=== PATIENT | female | born 2000 | race Caucasian/White ===

== ENCOUNTER 2021-01-31 16:58 | Emergency (ER) | payer BC, SELFPAY ==
[2021-01-31 17:10] VITALS: BP 144/73; PULSE 85; RESP 20; TEMP 36.8; O2SAT 99
--- NOTE | 2021-01-31 17:28 | ED_ITS ---
HPI - Extremity Problem General Chief complaint: Extremity Injury, Lower Stated complaint: right leg swollen Time Seen by Provider: 01/31/21 17:30 Source: patient and family History of Present Illness HPI Narrative: Patient presents with swelling and pain to her right calf. For the past 3 to 4 days. Patient states about 3 days ago she felt a pop in the back of her leg and has had pain and discomfort ever since then. No shortness of breath no chest pain no history of DVT. Review of Systems Review of Systems: CONSTITUTIONAL: Denies fever, chills, or sweats. EYES: Denies visual changes, redness, or discharge. ENT: Denies rhinorrhea, congestion, sore throat, or otalgia. CARDIOVASCULAR: Denies chest pain, palpitations, or edema. RESPIRATORY: Denies cough or dyspnea. GASTROINTESTINAL: Denies abdominal pain, nausea, vomiting, or diarrhea. GENITOURINARY: Denies dysuria or hematuria. SKIN: Denies rash or itching. MUSCULOSKELETAL: Denies back pain, joint pain, or myalgia. Right calf pain tenderness and swelling NEUROLOGIC: Denies headache, numbness, or weakness. PSYCHIATRIC: Denies anxiety or depression. Allergic/Immunologic: Comments: At time of signature, agree with nursing past medical, surgical, social and family history. There is no relevant family history pertinent to the presenting complaint Exam Narrative: GENERAL: Well-appearing, well-nourished, and in no acute distress. HEAD: Normocephalic, atraumatic. EYES: PERRLA and EOMI. ENT: Nares clear, no rhinorrhea or epistaxis. Mucous membranes moist. NECK: Supple. CHEST: Clear to auscultation. No respiratory distress. HEART: Regular rate and rhythm. No murmur heard. Normal peripheral pulses. ABDOMEN: Soft, nontender, nondistended, normal active bowel sounds. EXTREMITIES: Normal range of motion. No edema. Significant swelling to her right lower leg positive Homans side tenderness to calf area SKIN: Warm, dry, no rash. NEURO: No focal deficits. Alert and oriented x3. [place] Coma Scale Eye Opening: Spontaneous 4 [place] Coma Scale Motor: Obeys Commands 6 [place] Coma Scale Verbal: Oriented 5 [place] Coma Scale Total 15 Course Transfer Transfered to: [place] Transportation: Other (Private vehicle) Transfer rationale: Higher level of care Accepting physician: sean [facility] - Extremity (Nontraumatic) Differential Diagnosis Differential diagnosis: Likely cellulitis, superficial thrombophlebitis, deep venous thrombosis of upper extremity, lower extremity edema and deep vein thrombosis of lower extremity Critical Care Time Critical Care Time Critical Care Time: No Discharge Plan Discharge Clinical Impression: Pain of right calf Patient Disposition: Acute Care Hospital Condition: Stable Additional Instructions: Go directly to [facility] emergency room do not eat or drink in route to the hospital Follow-up/Referrals: PHYSICIAN,TRANSIT OPERATIONS SUPERVISOR [Primary Care Provider] -
== END 2021-01-31 17:35 | disposition short-term general hospital (02) ==
PROVIDERS: Emergency Provider Nurse Practitioner Family
DX: M79.662 Pain in left lower leg (principal)
CPT/HCPCS: 99212; G0463

== ENCOUNTER 2021-07-28 10:40 | Outpatient (CLI) | payer OTHER, SELFPAY ==
--- NOTE | ~2021-07-28 | US_ITS ---
EXAMINATION: US OB /maternal detail EXAM DATE: 07/28/2021 11:47 INDICATION: anatomy. 2nd trimester. TECHNIQUE: Pelvic obstetrical transabdominal sonogram was performed by a technologist. There are mu ltiple grayscale and Doppler images available for interpretation. There are no earlier studies of th is gestation for comparison. FINDINGS: There is a single fetus identified in vertex presentation with a heart rate of 157 beats pe r minute. The placenta is located in the fundal position. There is no sonographic evidence of retrop lacental hemorrhage identified. There is subjectively expected amount of amniotic fluid. BIOMETRIC DATA: Biparietal diameter (BPD): 4.3 cm ----------------> 19 weeks 0 days. Head circumference (HC): 16.2 cm ----------------> 19 weeks 0 days. Abdominal circumference (AC): 14.4 cm ----------> 19 weeks 5 days. Femur length (FL): 2.9 cm --------------------------> 18 weeks 5 days. These measurements are concordant. HC/AC ratio is 1.13 (The 5th -- 95th percentile range is 1.09-1.26. Estimated weight is 280 g +/- 42 g. This is the 83rd percentile when the currently reported cl inical gestation age 18 weeks 4 days, clinical estimated date of delivery (ELHAM-OPE) 12/25/2021 is used . estimated gestational age based on measurements from this exam is 19 weeks 1 day, with an est imated date of delivery (ELHAM-AUA) 12/21. ANATOMIC SURVEY: The following anatomy is identified and is sonographically normal in appearance: Cerebral ventricles Cavum septum pellucidum Cerebellum Cisterna magna Nuchal fold CTL-spine Four-chamber heart Cardiac outflow tracts Diaphragm Stomach Kidneys Bladder Three-vessel cord Cord insertion Extremities Nose/lips IMPRESSION: 1. Single fetus in vertex presentation with heart rate 157 beats per minute. 2. Estimated weight of 280 grams, 83rd percentile using the currently reported clinical gestat ion age of 18 weeks 4 days, ELHAM(OPE) 12/25. 3. Normal anatomic survey. Reviewed, dictated and finalized at location A. GAME MACHINE INSPECTOR IMPRESSION: 1. Single fetus in vertex presentation with heart rate 157 beats per minute. 2. Estimated weight of 280 grams, 83rd percentile using the currently re ported clinical gestation age of 18 weeks 4 days, ELHAM(OPE) 12/25. 3. Normal anatomic survey.
== END 2021-07-28 10:41 | disposition home or self-care (01) ==
PROVIDERS: Visit Provider Obstetrics & Gynecology Gynecology
DX: Z36.9 Encounter for antenatal screening, unspecified (principal); Z3A.18 18 weeks gestation of pregnancy
CPT/HCPCS: 76805

== ENCOUNTER 2021-09-22 10:38 | Outpatient (CLI) | payer OTHER, SELFPAY ==
--- NOTE | ~2021-09-22 | US_ITS ---
EXAMINATION: US OB follow up DATE: 09/22/2021 11:38 INDICATION: Size greater than dates during second trimester TECHNIQUE: Real-time ultrasound of the pelvis was performed. The interpreting radiologist was not pre sent for the study. COMPARISON: 07/28/2021 FINDINGS: There is a single living fetus in transverse lie. The placenta is fundal/posterior. c ardiac activity and movement are noted. heart rate is 143 beats per minute (bpm). The amn iotic fluid index is 16.1 cm which is normal (normal range: 9.7 cm to 22.3 cm). The following biometric data were obtained: Biparietal diameter (BPD): 6.8 cm; head circumference (HC): 25.1 cm; abdominal circumference (AC): 23 .9 cm; femur length (FL): 5.1 cm. These measurements are concordant. Estimated weight is 1131 g +/- 169 g, which correlates with the 86th percentile when 12/25/2021 is used as estimated date of delivery. As single measurements, these parameters are each equal to the following estimated gestational ages w ith ranges of +/- 2 standard deviations: BPD: 27 weeks 3 days ( 25 weeks 1 days - 29 weeks 4 days). HC: 27 weeks 2 days ( 25 weeks 2 days - 29 weeks 3 days). AC: 28 weeks 2 days ( 26 weeks 0 days - 30 weeks 3 days). FL: 27 weeks 3 days ( 25 weeks 3 days - 29 weeks 4 days). estimated gestational age based solely on measurements from this exam is 27 weeks 4 days +/- 2 weeks 0 days. IMPRESSION: 1. Single living fetus in transverse lie. 2. Estimated weight is 1131 g +/- 169 g, which correlates with the 86th percentile when 12/26/19 22 is used as estimated date of delivery. 3. Normal amniotic fluid index. Reviewed, dictated and finalized at location B. IMPRESSION: 1. Single living fetus in transverse lie. 2. Estimated weight is 1131 g +/- 169 g, which correlates with the 86th p ercentile when 12/25/2021 is used as estimated date of delivery. 3. Normal amniotic fluid index.
== END 2021-09-22 10:39 | disposition home or self-care (01) ==
PROVIDERS: Visit Provider Obstetrics & Gynecology Gynecology
DX: O36.63X0 Maternal care for excessive fetal growth, third trimester, not applicable or unspecified (principal); Z3A.00 Weeks of gestation of pregnancy not specified; Z3A.27 27 weeks gestation of pregnancy
CPT/HCPCS: 76816

== ENCOUNTER 2021-10-27 12:12 | Outpatient (CLI) | payer OTHER, SELFPAY ==
[2021-10-27 12:46] VITALS: BP 139/89; PULSE 90
[2021-10-27 12:47] LABS: Basophils Percent Auto 0.3 % (0.2-1.2); Eosinophils Absolute Auto 0.1 K/mm3 (0-0.3); Eosinophils Percent Auto 1.2 % (0-4.4); Hemoglobin 12.9 g/dL (12.0-15.0); Immature Granulocyte Absolute 0.07 K/mm3 (0.00-0.031); Immature Granulocyte Percent A 0.7 % (0-0.5); Lymphocytes Absolute Auto 0.82 K/mm3 (0.9-3.2); Lymphocytes Percent Auto 8.6 % (18.3-44.2); Mean Corpuscular HGB Conc 32.3 g/dl (32-36); Mean Corpuscular Hemoglobin 27.4 pg (26-34); Mean Corpuscular Volume 85.1 fl (80-100); Mean Platelet Volume 10.8 fl (7.4-10.4); Monocytes Absolute Auto 0.6 K/mm3 (0.1-0.6); Monocytes Percent Auto 6.1 % (2.6-8.5); Neutrophils Absolute Auto 7.9 K/mm3 (1.3-6.7); Neutrophils Percent Auto 83.1 % (45.5-73.1); Platelet Count Result 148 k/mm3 (150-375); Red Cell Distribution Width 13.8 % (11.5-14.5); White Blood Count 9.5 K/mm3 (4.5-10.0)
[2021-10-27 12:52] LABS: Add Urine Microscopic? YES; Appearance Urine Clear (Clear); Bacteria Urine Trace /hpf; Bilirubin Urine Negative (Negative); Blood Urine Negative (Negative); Color Urine Yellow (Yellow); Glucose Urine UA Negative (Negative); Ketones Urine Negative (Negative); Leukocyte Esterase Ur Trace LEU/UL (NEGATIVE); Nitrate Urine Negative (Negative); Protein Urine Negative (Negative); RBC Urine 0-2 /hpf (0-2); Specific Grav Ur 1.011 (1.001-1.035); Squamous Epithelial Cell Urine Many /hpf (Few); Urobilinogen Urine Negative mg/dL (<2.0)
[2021-10-27 12:54] LABS: Creatinine Urine 95.9 mg/dL; Total Protein Urine Random 13 mg/dL; Ur Ttl Prot Creatinine Ratio 0.14 mg/mg (0-0.20)
[2021-10-27 13:01] VITALS: BP 117/70; PULSE 85
[2021-10-27 13:16] VITALS: BP 121/68; PULSE 84
[2021-10-27 13:16] LABS: Alanine Aminotransferase 9 U/L (4-35); Albumin Level 3.2 g/dL (3.5-5.1); Alkaline Phosphatase 93 U/L (38-126); Anion Gap 6 mmol/L (8-16); Aspartate Amino Transferase 20 U/L (14-36); Bilirubin,Total 0.6 mg/dL (0.2-1.3); Blood Urea Nitrogen 4 mg/dL (7-17); Calcium 8.5 mg/dL (8.4-10.2); Carbon Dioxide 22 mmol/L (22-30); Chloride 106 mmol/L (98-107); Estimated Glomerular Filt Rate > 60; Glucose 84 mg/dL (65-110); Potassium 3.5 mmol/L (3.4-5.0); Sodium 134 mmol/L (137-145); Uric Acid 3.5 mg/dL (2.5-7.5)
--- NOTE | 2021-10-27 13:20 | PC.NURSE ---
1320- Spoke with Dr. Miles, labs and BP's reveiwed. Orders to discharge to home with 24 hour urine. patient to return urine tomorrow, then call office after a few hours.
[2021-10-28 13:53] VITALS: BMI 34.5
[2021-10-28 16:10] LABS: Collection Time Urine 24 HOURS
[2021-10-28 16:21] LABS: Creatinine Urine 80.8 mg/dL; Patient Weight 227 Lbs
[2021-10-28 16:25] LABS: Creatinine Clearance Urine 150.5 ml/min (75-125); Total Volume 24 Hour Urine 2000 ml
[2021-10-28 16:26] LABS: Total Volume 24 Hour Urine 2000 ml
[2021-10-29 02:17] LABS: Total Protein Urine 24 Hr 320 mg/24hr (28-141); Total Protein Urine Random 16 mg/dL
== END 2021-10-27 13:38 | disposition home or self-care (01) ==
LOC: ANHOBOP 12:17 → ANHOBPP 12:19
PROVIDERS: Visit Provider Obstetrics & Gynecology Gynecology
DX: O13.9 Gestational [pregnancy-induced] hypertension without significant proteinuria, unspecified trimester (principal); Z3A.00 Weeks of gestation of pregnancy not specified
CPT/HCPCS: 36415; 59025; 80053; 81001; 81050; 82570; 82575; 84156; 84550; 85025; 87086; 99199

== ENCOUNTER 2021-10-31 13:33 | Outpatient (CLI) | payer OTHER, SELFPAY ==
[2021-10-31 14:26] VITALS: BP 137/80; PULSE 89
[2021-10-31 14:38] LABS: Basophils Percent Auto 0.3 % (0.2-1.2); Eosinophils Absolute Auto 0.2 K/mm3 (0-0.3); Eosinophils Percent Auto 1.9 % (0-4.4); Hematocrit 39.6 % (37.0-47.0); Hemoglobin 12.9 g/dL (12.0-15.0); Immature Granulocyte Absolute 0.06 K/mm3 (0.00-0.031); Immature Granulocyte Percent A 0.6 % (0-0.5); Lymphocytes Absolute Auto 1.14 K/mm3 (0.9-3.2); Mean Corpuscular HGB Conc 32.6 g/dl (32-36); Mean Corpuscular Hemoglobin 27.6 pg (26-34); Mean Corpuscular Volume 84.8 fl (80-100); Mean Platelet Volume 10.3 fl (7.4-10.4); Monocytes Absolute Auto 0.6 K/mm3 (0.1-0.6); Monocytes Percent Auto 5.9 % (2.6-8.5); Neutrophils Absolute Auto 7.5 K/mm3 (1.3-6.7); Neutrophils Percent Auto 79.3 % (45.5-73.1); Platelet Count Result 155 k/mm3 (150-375); Red Blood Count 4.67 M/mm3 (4.2-5.4); Red Cell Distribution Width 13.8 % (11.5-14.5); White Blood Count 9.5 K/mm3 (4.5-10.0)
[2021-10-31 14:45] VITALS: BP 137/79; PULSE 88
[2021-10-31 14:50] LABS: Alanine Aminotransferase 10 U/L (4-35); Albumin Level 3.4 g/dL (3.5-5.1); Alkaline Phosphatase 97 U/L (38-126); Anion Gap 5 mmol/L (8-16); Aspartate Amino Transferase 18 U/L (14-36); Bilirubin,Total 0.4 mg/dL (0.2-1.3); Blood Urea Nitrogen 6 mg/dL (7-17); Calcium 8.9 mg/dL (8.4-10.2); Carbon Dioxide 23 mmol/L (22-30); Chloride 106 mmol/L (98-107); Estimated Glomerular Filt Rate > 60; Glucose 87 mg/dL (65-110); Potassium 3.8 mmol/L (3.4-5.0); Sodium 134 mmol/L (137-145); Uric Acid 3.6 mg/dL (2.5-7.5)
[2021-10-31 15:00] VITALS: BP 138/79; PULSE 82
[2021-10-31 15:11] VITALS: BP 137/80; PULSE 89
== END 2021-10-31 15:12 | disposition home or self-care (01) ==
LOC: ANHOBOP 13:52 → ANHLDR 13:53
PROVIDERS: Visit Provider Obstetrics & Gynecology Gynecology
DX: O13.9 Gestational [pregnancy-induced] hypertension without significant proteinuria, unspecified trimester (principal); Z3A.00 Weeks of gestation of pregnancy not specified
CPT/HCPCS: 36415; 59025; 80053; 84550; 85025; 99199

== ENCOUNTER 2021-11-09 15:48 | Outpatient (CLI) | payer OTHER, SELFPAY ==
--- NOTE | ~2021-11-09 | US_ITS ---
EXAMINATION: US OB follow up DATE: 11/09/2021 16:53 INDICATION: Preeclampsia. TECHNIQUE: Real-time transabdominal obstetric ultrasound. FINDINGS: Comparison to multiple prior studies sequentially, with oldest reviewed study dated 022. There is a single living fetus in vertex presentation. The placenta is posterior without placenta pr evia. cardiac activity and movement is noted with a heart rate of 159 beats per minute. T he amniotic fluid volume is normal. TJ measures 19.6 cm (normal range for gestational age is 8.3-24. 5 cm). The following biometric data were obtained: BPD: 88mm corresponds to gestational age 35 weeks 2 days. Head circumference: 315mm corresponds to gestational age 35 weeks 3 days. Abdominal circumference: 303mm corresponds to gestational age 34 weeks 2 days. Femur length: 70mm corresponds to gestational age 35 weeks 6 days. Estimated weight: 2540grams +/- 381grams.] Umbilical artery pulsed Doppler demonstrates peak systolic to end-diastolic velocity ratios (S/D rati os) of 2.8 (5th percentile = 2.11, 95th percentile = 3.67). IMPRESSION: 1. Single living fetus in vertex presentation with an estimated gestational age of 34 weeks 0 days b y inititial ultrasound. EDC by initial ultrasound is 12/21/2021. Appropriate interval growth. 2: Normal TJ measures 19.6 cm. 3: Normal umbilical Doppler examination. Reviewed, dictated and finalized at location A. IMPRESSION: 1. Single living fetus in vertex presentation with an estimated gestational ag e of 34 weeks 0 days by inititial ultrasound. EDC by initial ultrasound is 12/21. Appropriate interval growth. 2: Normal TJ measures 19.6 cm. 3: Normal umbilical Doppler examination.
== END 2021-11-09 15:49 | disposition home or self-care (01) ==
PROVIDERS: Visit Provider Obstetrics & Gynecology Gynecology
DX: O14.93 Unspecified pre-eclampsia, third trimester (principal); Z3A.34 34 weeks gestation of pregnancy
CPT/HCPCS: 76816

== ENCOUNTER 2021-11-10 12:48 | Observation (INO) | payer OTHER, SELFPAY ==
[2021-11-10] VITALS (7 sets, daily range): BP systolic 130–147; BP diastolic 79–91; PULSE 78–93; BMI 34.2
[2021-11-10 13:40] LABS: Basophils Percent Auto 0.2 % (0.2-1.2); Eosinophils Absolute Auto 0.1 K/mm3 (0-0.3); Eosinophils Percent Auto 0.5 % (0-4.4); Hematocrit 40.1 % (37.0-47.0); Hemoglobin 13.5 g/dL (12.0-15.0); Immature Granulocyte Absolute 0.04 K/mm3 (0.00-0.031); Immature Granulocyte Percent A 0.4 % (0-0.5); Lymphocytes Absolute Auto 1.21 K/mm3 (0.9-3.2); Lymphocytes Percent Auto 13.3 % (18.3-44.2); Mean Corpuscular HGB Conc 33.7 g/dl (32-36); Mean Corpuscular Hemoglobin 27.8 pg (26-34); Mean Corpuscular Volume 82.5 fl (80-100); Mean Platelet Volume 10.5 fl (7.4-10.4); Monocytes Absolute Auto 0.5 K/mm3 (0.1-0.6); Monocytes Percent Auto 5.8 % (2.6-8.5); Neutrophils Absolute Auto 7.3 K/mm3 (1.3-6.7); Neutrophils Percent Auto 79.8 % (45.5-73.1); Platelet Count Result 157 k/mm3 (150-375); Red Blood Count 4.86 M/mm3 (4.2-5.4); Red Cell Distribution Width 13.5 % (11.5-14.5); White Blood Count 9.1 K/mm3 (4.5-10.0)
[2021-11-10 13:47] LABS: Creatinine Urine 69.4 mg/dL; Total Protein Urine Random 17 mg/dL; Ur Ttl Prot Creatinine Ratio 0.24 mg/mg (0-0.20)
[2021-11-10 13:50] LABS: Alanine Aminotransferase 11 U/L (6-35); Albumin Level 3.5 g/dL (3.5-5.1); Alkaline Phosphatase 123 U/L (38-126); Anion Gap 8 mmol/L (8-16); Aspartate Amino Transferase 20 U/L (14-36); Bilirubin,Total 0.7 mg/dL (0.2-1.3); Blood Urea Nitrogen 4 mg/dL (7-17); Calcium 8.9 mg/dL (8.4-10.2); Carbon Dioxide 20 mmol/L (22-30); Chloride 105 mmol/L (98-107); Estimated CRCL calculation 156 ml/min; Estimated Glomerular Filt Rate > 60; Glucose 81 mg/dL (65-110); Potassium 3.6 mmol/L (3.4-5.0); Sodium 133 mmol/L (137-145); Uric Acid 4.2 mg/dL (2.5-7.5)
[2021-11-10 13:51] LABS: Appearance Urine Clear (Clear); Bilirubin Urine Negative (Negative); Blood Urine Negative (Negative); Color Urine Yellow (Yellow); Glucose Urine UA Negative (Negative); Ketones Urine 2+ mg/dL (Negative); Leukocyte Esterase Ur 1+ LEU/UL (NEGATIVE); Nitrate Urine Negative (Negative); Protein Urine Negative (Negative); Urobilinogen Urine 0.2 mg/dL (<2.0)
[2021-11-10] MEDS: BETAMETHASONE SOD PHOS/ACETATE 30 MG/5 ML VIAL 12 MG IM (13:54)
[2021-11-10] MEDS: ONDANSETRON INJ 4 MG/2 ML VIAL IV PUSH (13:57)
[2021-11-10 13:58] LABS: Bacteria Urine Trace /hpf; Squamous Epithelial Cell Urine Few /hpf (Few)
[2021-11-10 14:06] LABS: Add Urine Microscopic? YES
--- NOTE | 2021-11-10 14:27 | OBADM ---
This patient, Caron Horton, admitted to the OB room OB Post 116 for observation. Patient/family oriented to hospital policies and general routines including ID bracelet, bed and alarms, visiting hours, pain management, procedures, bathroom and other care routines, personal items, smoking policy, room service/diet, and visiting hours. Patient/Family are encouraged to report perceived risks to care and to ask questions if they do not understand what they are told or what they should do. Phone call received from Micheline Pérez CNM with orders for Labwork, EFM, v.s., and medication. Orders to notify LARISAM after labs and meds given.
--- NOTE | 2021-11-10 15:37 | PC.NURSE ---
1458--Phone call received from Micheline Pérez CNM, orders to DC home with instructions on when to return to hospital and f/u in office on Sunday11/14/21.
--- NOTE | 2021-11-15 13:13 | PM.OBTRLD ---
OB - Triage/Final Diagnosis Visit Information Reason for evaluation: other (Preeclampsia) Comments/Additional reasons for admission: I have assessed the risk for this patient, Caron Horton, and determined that she would benefit from observation care. Evaluation Laboratory results: Laboratory Tests 11/10/21 11/10/21 11/10/21 13:20 13:20 13:29 WBC 9.1 RBC 4.86 Hgb 13.5 Hct 40.1 MCV 82.5 MCH 27.8 MCHC 33.7 RDW 13.5 Plt Count 157 MPV 10.5 H Immature Gran % (Auto) 0.4 Neut % (Auto) 79.8 H Lymph % (Auto) 13.3 L [place] % (Auto) 5.8 Eos % (Auto) 0.5 Baso % (Auto) 0.2 Lymph # (Auto) 1.21 [place] # (Auto) 0.5 Eos # (Auto) 0.1 Baso # (Auto) 0.0 Abs Immat Gran (auto) 0.04 H Absolute Neuts (auto) 7.3 H Absolute Nucleated RBC 0.0 Nucleated RBC % 0.0 Sodium Potassium Chloride Carbon Dioxide Anion Gap BUN Creatinine Estim Creat Clear Calc Estimated GFR Glucose Uric Acid Calcium Total Bilirubin AST ALT Alkaline Phosphatase Total Protein Albumin Urine Color Yellow Urine Appearance Clear Urine pH 7.0 Ur Specific [place] 1.010 Urine Protein Negative Urine Glucose (UA) Negative Urine Ketones 2+ H Ur Blood (Man) Negative Urine Nitrate Negative Urine Bilirubin Negative Urine Urobilinogen 0.2 Ur Leukocyte Esterase 1+ H Urine WBC 4-6 H Ur Squamous Epith Cells Few Urine Bacteria Trace U Random Total Protein 17 Urine Creatinine 69.4 Protein/Creat Ratio 2 0.24 H 11/10/21 13:29 WBC RBC Hgb Hct MCV MCH MCHC RDW Plt Count MPV Immature Gran % (Auto) Neut % (Auto) Lymph % (Auto) [place] % (Auto) Eos % (Auto) Baso % (Auto) Lymph # (Auto) [place] # (Auto) Eos # (Auto) Baso # (Auto) Abs Immat Gran (auto) Absolute Neuts (auto) Absolute Nucleated RBC Nucleated RBC % Sodium 133 L Potassium 3.6 Chloride 105 Carbon Dioxide 20 L Anion Gap 8 BUN 4 L Creatinine 0.60 L Estim Creat Clear Calc 156 Estimated GFR > 60 Glucose 81 Uric Acid 4.2 Calcium 8.9 Total Bilirubin 0.7 AST 20 ALT 11 Alkaline Phosphatase 123 Total Protein 7.0 Albumin 3.5 Urine Color Urine Appearance Urine pH Ur Specific [place] Urine Protein Urine Glucose (UA) Urine Ketones Ur Blood (Man) Urine Nitrate Urine Bilirubin Urine Urobilinogen Ur Leukocyte Esterase Urine WBC Ur Squamous Epith Cells Urine Bacteria U Random Total Protein Urine Creatinine Protein/Creat Ratio 2
== END 2021-11-10 15:24 | disposition home or self-care (01) ==
PROVIDERS: Admitting Provider Obstetrics & Gynecology; Visit Provider Advanced Practice Midwife
DX: O14.93 Unspecified pre-eclampsia, third trimester (principal); Z3A.33 33 weeks gestation of pregnancy
CPT/HCPCS: 36415; 80053; 81001; 82570; 84156; 84550; 85025; 87081; 87086; 96372; 96374; G0378; G0379; J0702; J2405

== ENCOUNTER 2021-11-11 13:36 | Outpatient (CLI) | payer OTHER, SELFPAY ==
[2021-11-11 13:36] VITALS: BMI 34.2
[2021-11-11] MEDS: BETAMETHASONE SOD PHOS/ACETATE 30 MG/5 ML VIAL 12 MG IM (14:10)
[2021-11-11 14:14] VITALS: BP 132/81; PULSE 88
[2021-11-11 15:48] LABS: Collection Time Urine 24 HOURS
[2021-11-11 15:57] LABS: Total Volume 24 Hour Urine 2300 ml
[2021-11-11 16:12] LABS: Total Protein Urine 24 Hr 414 mg/24hr (28-141); Total Protein Urine Random 18 mg/dL
[2021-11-11 16:13] LABS: Creatinine Clearance Urine 163.5 ml/min (75-125); Creatinine Urine 75.9 mg/dL; Patient Weight 224 Lbs
== END 2021-11-11 13:37 | disposition home or self-care (01) ==
LOC: ANHOBOP 13:44
PROVIDERS: Visit Provider Obstetrics & Gynecology Gynecology
DX: O15.03 Eclampsia complicating pregnancy, third trimester (principal); Z3A.34 34 weeks gestation of pregnancy
CPT/HCPCS: 59025; 81050; 82575; 84156; 96372; J0702

== ENCOUNTER 2021-11-12 15:18 | Outpatient (CLI) | payer OTHER, SELFPAY ==
[2021-11-12 15:30] VITALS: BP 138/83; PULSE 80
[2021-11-12 15:45] VITALS: BP 130/79; PULSE 85
[2021-11-12 16:00] VITALS: BP 127/76; PULSE 79
[2021-11-12 16:20] VITALS: TEMP 36.3
--- NOTE | 2021-11-12 16:30 | PC.NURSE ---
Called Dr. Hassan notifying of redness on arms and face, nausea, and feeling hot after second steroid shot yesterday. Vital signs stable, reactive NST, no contractions, and occasional irritability. Pt states head is foggy and sees occasional light flashes that she noticed for weeks. Orders received to D/C home with Benadryl, Tylenol, fluids, and rest.
== END 2021-11-12 16:35 | disposition home or self-care (01) ==
LOC: ANHOBOP 15:22 → ANHOBPP 15:23
PROVIDERS: Visit Provider Obstetrics & Gynecology Gynecology
DX: O13.9 Gestational [pregnancy-induced] hypertension without significant proteinuria, unspecified trimester (principal); Z3A.00 Weeks of gestation of pregnancy not specified
CPT/HCPCS: 59025; 99199

== ENCOUNTER 2021-11-14 13:46 | Outpatient (RCR) | payer OTHER, SELFPAY ==
--- NOTE | ~2021-11-14 | US_ITS ---
EXAMINATION: US OB BPP wo non-stress DATE: 11/14/2021 15:31 CDT INDICATION: variable movement TECHNIQUE: Real-time transabdominal obstetric ultrasound. FINDINGS: Comparison ultrasound dated 11/09/2021 There is a single living fetus in vertex presentation. The placenta is posterior without placenta pr evia. cardiac activity and movement is noted with a heart rate of 154 beats per minute. Biophysical profile: breathin of 2 movement: 2 of 2 tone: 2 of 2 Amniotic flud pocket: 2 of 2 Total score: 8 of 8 IMPRESSION: 1. Single living intrauterine in vertex presentation. 2: Total biophysical profile score of 8/8. Reviewed, dictated and finalized at location A.
[2021-11-14 16:00] VITALS: BP 140/80; PULSE 86
== END 2021-12-09 10:19 | disposition home or self-care (01) ==
LOC: ANHOBOP 13:46
PROVIDERS: Visit Provider Obstetrics & Gynecology Gynecology
DX: O14.93 Unspecified pre-eclampsia, third trimester (principal); Z3A.34 34 weeks gestation of pregnancy
CPT/HCPCS: 59025; 76819

== ENCOUNTER 2021-11-16 23:12 | Observation (INO) | payer OTHER, SELFPAY ==
[2021-11-16 22:24] VITALS: BP 131/83; PULSE 87
[2021-11-16 22:30] VITALS: BP 134/77; PULSE 85
[2021-11-16 22:38] LABS: Basophils Percent Auto 0.4 % (0.2-1.2); Eosinophils Absolute Auto 0.1 K/mm3 (0-0.3); Eosinophils Percent Auto 0.9 % (0-4.4); Hematocrit 39.6 % (37.0-47.0); Immature Granulocyte Absolute 0.14 K/mm3 (0.00-0.031); Immature Granulocyte Percent A 1.4 % (0-0.5); Lymphocytes Percent Auto 17.7 % (18.3-44.2); Mean Corpuscular HGB Conc 32.8 g/dl (32-36); Mean Corpuscular Hemoglobin 27.7 pg (26-34); Mean Corpuscular Volume 84.3 fl (80-100); Mean Platelet Volume 10.7 fl (7.4-10.4); Monocytes Absolute Auto 0.7 K/mm3 (0.1-0.6); Monocytes Percent Auto 7.1 % (2.6-8.5); Neutrophils Absolute Auto 7.4 K/mm3 (1.3-6.7); Neutrophils Percent Auto 72.5 % (45.5-73.1); Platelet Count Result 169 k/mm3 (150-375); Red Cell Distribution Width 13.8 % (11.5-14.5); White Blood Count 10.2 K/mm3 (4.5-10.0)
[2021-11-16 22:39] VITALS: RESP 17; TEMP 36.6
[2021-11-16 22:41] LABS: Appearance Urine Clear (Clear); Bilirubin Urine Negative (Negative); Color Urine Yellow (Yellow); Glucose Urine UA Negative (Negative); Ketones Urine Negative (Negative); Leukocyte Esterase Ur 2+ LEU/UL (NEGATIVE); Nitrate Urine Negative (Negative); Protein Urine Negative (Negative); Specific Grav Ur 1.015 (1.001-1.035); Urobilinogen Urine 0.2 mg/dL (<2.0)
[2021-11-16 22:43] LABS: Add Urine Microscopic? YES; Blood Urine Trace (Negative)
[2021-11-16 22:45] VITALS: BP 122/77; PULSE 86
[2021-11-16 22:49] LABS: Alanine Aminotransferase 12 U/L (6-35); Albumin Level 3.3 g/dL (3.5-5.1); Alkaline Phosphatase 103 U/L (38-126); Anion Gap 6 mmol/L (8-16); Aspartate Amino Transferase 16 U/L (14-36); Bilirubin,Total 0.4 mg/dL (0.2-1.3); Blood Urea Nitrogen 8 mg/dL (7-17); Calcium 8.9 mg/dL (8.4-10.2); Carbon Dioxide 20 mmol/L (22-30); Chloride 107 mmol/L (98-107); Estimated Glomerular Filt Rate > 60; Glucose 97 mg/dL (65-110); Potassium 3.7 mmol/L (3.4-5.0); Sodium 133 mmol/L (137-145); Total Protein Urine Random 14 mg/dL; Uric Acid 3.9 mg/dL (2.5-7.5)
[2021-11-16 23:00] VITALS: BP 130/71; PULSE 80
[2021-11-16 23:24] LABS: Bacteria Urine Trace /hpf; RBC Urine 0-2 /hpf (0-2); Squamous Epithelial Cell Urine Many /hpf (Few)
[2021-11-16 23:33] VITALS: BMI 34.2
--- NOTE | 2021-11-16 23:36 | OBADM ---
This patient, Caron Horton, admitted to the OB room OB Post 117 for observation. Patient/family oriented to hospital policies and general routines including ID bracelet, bed and alarms, visiting hours, pain management, procedures, bathroom and other care routines, personal items, smoking policy, room service/diet, and visiting hours. Patient/Family are encouraged to report perceived risks to care and to ask questions if they do not understand what they are told or what they should do.
--- NOTE | 2021-11-16 23:38 | PC.NURSE ---
This RN contacted Nicole Pérez, Tube Handler. Beto updated on PT's lab results, head to toe assessment, vital signs, and FHR. No new orders received at this time.
--- NOTE | 2021-11-16 23:40 | PC.NURSE ---
Addendum entered by Ana Lilia Avila RN 11/16/21 23:45: Ordered to discontinue EFM per Nicole Pérez. PT denies feeling contractions. Reactive tracing. Instructed PT to call out for stronger contractions, leaking fluid, vaginal bleeding. PT verbalizes understanding. Original Note: This RN contacted by Nicole Pérez, Head Of Design at 2309 on 11/16/2021. Ordered to admit PT under observation. Verbal read back of orders performed between this RN and Beto.
[2021-11-17 03:12] VITALS: TEMP 36.3
[2021-11-17 03:13] VITALS: BP 121/66; PULSE 78
[2021-11-17 05:53] VITALS: TEMP 36.4
[2021-11-17 05:54] VITALS: BP 144/79; PULSE 88
--- NOTE | 2021-11-17 07:21 | PM.OBTRLD ---
OB - Triage/Final Diagnosis Visit Information Comments/Additional reasons for admission: I have assessed the risk for this patient, Caron Horton, and determined that she would benefit from observation care. Evaluation Laboratory results: Laboratory Tests 11/16/21 11/16/21 11/16/21 22:15 22:15 22:15 WBC 10.2 H RBC 4.70 Hgb 13.0 Hct 39.6 MCV 84.3 MCH 27.7 MCHC 32.8 RDW 13.8 Plt Count 169 MPV 10.7 H Immature Gran % (Auto) 1.4 H Neut % (Auto) 72.5 Lymph % (Auto) 17.7 L [place] % (Auto) 7.1 Eos % (Auto) 0.9 Baso % (Auto) 0.4 Lymph # (Auto) 1.80 [place] # (Auto) 0.7 H Eos # (Auto) 0.1 Baso # (Auto) 0.0 Abs Immat Gran (auto) 0.14 H Absolute Neuts (auto) 7.4 H Absolute Nucleated RBC 0.0 Nucleated RBC % 0.0 Sodium Potassium Chloride Carbon Dioxide Anion Gap BUN Creatinine Estim Creat Clear Calc Estimated GFR Glucose Uric Acid Calcium Total Bilirubin AST ALT Alkaline Phosphatase Total Protein Albumin Urine Color Yellow Urine Appearance Clear Urine pH 7.0 Ur Specific [place] 1.015 Urine Protein Negative Urine Glucose (UA) Negative Urine Ketones Negative Ur Blood (Man) Trace Urine Nitrate Negative Urine Bilirubin Negative Urine Urobilinogen 0.2 Ur Leukocyte Esterase 2+ H Urine RBC 0-2 Urine WBC 4-6 H Ur Squamous Epith Cells Many H Urine Bacteria Trace U Random Total Protein 14 Urine Creatinine 69.0 Protein/Creat Ratio 2 0.20 11/16/21 22:15 WBC RBC Hgb Hct MCV MCH MCHC RDW Plt Count MPV Immature Gran % (Auto) Neut % (Auto) Lymph % (Auto) [place] % (Auto) Eos % (Auto) Baso % (Auto) Lymph # (Auto) [place] # (Auto) Eos # (Auto) Baso # (Auto) Abs Immat Gran (auto) Absolute Neuts (auto) Absolute Nucleated RBC Nucleated RBC % Sodium 133 L Potassium 3.7 Chloride 107 Carbon Dioxide 20 L Anion Gap 6 L BUN 8 Creatinine 0.70 Estim Creat Clear Calc Not Reportable Estimated GFR > 60 Glucose 97 Uric Acid 3.9 Calcium 8.9 Total Bilirubin 0.4 AST 16 ALT 12 Alkaline Phosphatase 103 Total Protein 6.0 L Albumin 3.3 L Urine Color Urine Appearance Urine pH Ur Specific [place] Urine Protein Urine Glucose (UA) Urine Ketones Ur Blood (Man) Urine Nitrate Urine Bilirubin Urine Urobilinogen Ur Leukocyte Esterase Urine RBC Urine WBC Ur Squamous Epith Cells Urine Bacteria U Random Total Protein Urine Creatinine Protein/Creat Ratio 2 Vital signs: Vital Signs - 24 hr 11/16/21 22:24 11/16/21 22:30 11/16/21 22:39 Temperature 97.8 F Pulse Rate 87 85 Respiratory Rate 17 Blood Pressure 131/83 134/77 11/16/21 22:45 11/16/21 23:00 11/17/21 03:12 Temperature 97.4 F L Pulse Rate 86 80 Respiratory Rate Blood Pressure 122/77 130/71 11/17/21 03:13 11/17/21 05:53 11/17/21 05:54 Temperature 97.6 F Pulse Rate 78 88 Respiratory Rate Blood Pressure 121/66 144/79 H Final Diagnosis (1) Preeclampsia: Code(s): O14.90 - Unspecified pre-eclampsia, unspecified trimester Status: Acute Plan: Patient with symptoms last pm but feeling well this am. Labs and vs stable. Discussed hospital management vs continued outpatient management and patient prefers outpatient. Will DC home. Continue daily BP's, kick counts, symptoms review. Continue NST's and visits. (2) with 34 to 36 completed weeks gestation: Status: Acute
[2021-11-17 08:07] VITALS: BP 144/89; PULSE 77
--- NOTE | 2021-11-17 08:09 | PC.NURSE ---
0705--Dr. Miles reviewed labs and BP's. DC orders given.
== END 2021-11-17 08:05 | disposition home or self-care (01) ==
LOC: ANHOBOP 23:12 → ANHOBPP 23:12
PROVIDERS: Advanced Practice Midwife; Admitting Provider Obstetrics & Gynecology Gynecology; Visit Provider Obstetrics & Gynecology Gynecology
DX: O14.93 Unspecified pre-eclampsia, third trimester (principal); Z3A.34 34 weeks gestation of pregnancy
CPT/HCPCS: 36415; 59025; 80053; 81001; 82570; 84156; 84550; 85025; 87086; G0378; G0379

== ENCOUNTER 2021-11-23 20:08 | Inpatient (IN) | payer OTHER, SELFPAY ==
[2021-11-23] VITALS (22 sets, daily range): BP systolic 137–168; BP diastolic 76–105; PULSE 83–112; TEMP 36.7; BMI 34.2
[2021-11-23 16:55] LABS: Basophils Absolute Auto 0.1 K/mm3 (0.0-0.1); Basophils Percent Auto 0.5 % (0.2-1.2); Eosinophils Absolute Auto 0.1 K/mm3 (0-0.3); Eosinophils Percent Auto 0.7 % (0-4.4); Hematocrit 40.5 % (37.0-47.0); Hemoglobin 13.5 g/dL (12.0-15.0); Immature Granulocyte Absolute 0.11 K/mm3 (0.00-0.031); Lymphocytes Absolute Auto 1.45 K/mm3 (0.9-3.2); Lymphocytes Percent Auto 13.4 % (18.3-44.2); Mean Corpuscular HGB Conc 33.3 g/dl (32-36); Mean Corpuscular Hemoglobin 27.8 pg (26-34); Mean Corpuscular Volume 83.3 fl (80-100); Mean Platelet Volume 10.8 fl (7.4-10.4); Monocytes Absolute Auto 0.7 K/mm3 (0.1-0.6); Monocytes Percent Auto 6.5 % (2.6-8.5); Neutrophils Absolute Auto 8.4 K/mm3 (1.3-6.7); Neutrophils Percent Auto 77.9 % (45.5-73.1); Platelet Count Result 150 k/mm3 (150-375); Red Blood Count 4.86 M/mm3 (4.2-5.4); Red Cell Distribution Width 13.6 % (11.5-14.5); White Blood Count 10.8 K/mm3 (4.5-10.0)
[2021-11-23 17:01] LABS: Appearance Urine Slightly Cloudy (Clear); Bilirubin Urine Negative (Negative); Blood Urine Negative (Negative); Color Urine Yellow (Yellow); Glucose Urine UA Negative (Negative); Ketones Urine Negative (Negative); Leukocyte Esterase Ur 2+ LEU/UL (NEGATIVE); Nitrate Urine Negative (Negative); Protein Urine Negative (Negative); Urobilinogen Urine 0.2 mg/dL (<2.0)
[2021-11-23 17:06] LABS: Bacteria Urine Trace /hpf; Mucus Urine Rare /lpf; RBC Urine 0-2 /hpf (0-2); Squamous Epithelial Cell Urine Many /hpf (Few)
[2021-11-23 17:07] LABS: Add Urine Microscopic? YES
[2021-11-23 17:10] LABS: Alanine Aminotransferase 11 U/L (6-35); Albumin Level 3.5 g/dL (3.5-5.1); Alkaline Phosphatase 132 U/L (38-126); Anion Gap 9 mmol/L (8-16); Aspartate Amino Transferase 18 U/L (14-36); Bilirubin,Total 0.5 mg/dL (0.2-1.3); Blood Urea Nitrogen 9 mg/dL (7-17); Calcium 9.1 mg/dL (8.4-10.2); Carbon Dioxide 19 mmol/L (22-30); Chloride 108 mmol/L (98-107); Estimated Glomerular Filt Rate > 60; Glucose 78 mg/dL (65-110); Potassium 4.2 mmol/L (3.4-5.0); Sodium 136 mmol/L (137-145); Uric Acid 4.6 mg/dL (2.5-7.5)
[2021-11-23 17:11] LABS: Creatinine Urine 64.9 mg/dL; Total Protein Urine Random 10 mg/dL; Ur Ttl Prot Creatinine Ratio 0.15 mg/mg (0-0.20)
--- NOTE | 2021-11-23 19:48 | WPDOBADMIT ---
Obstetrics - Admit Note Admission Note: record reviewed. No pertinent additions to the history and/or any subsequent changes in the physical findings that are not consistent with the expected course of the were found. Additions to the history and/or subsequent changes in the physical findings follow. Patient at 35 4/7 wks with known preeclampsia here complaining of headache, nausea, and vomiting. vss afebrile abdoment soft, nt FHTs reactive cervix cl/th labs stable a/p 1. IUP 35 4/7 2 preeclampsia-symptomatic. Plan MIL with cervadil then Pitocin. Plan magnesium.
--- NOTE | 2021-11-23 20:16 | LDADM ---
This patient, Caron Horton, was admitted to Labor/Delivery/Recovery 106 on 11/23/21 at 20:08. Plans for labor, pain management and were discussed with patient. Patient/family oriented to hospital policies and general routines including ID bracelet, bed and alarms, visiting hours, pain management, procedures, bathroom and other care routines, personal items, smoking policy, room service/diet and guest tray routines, security routines, and visiting hours. Patient/Family are encouraged to report perceived risks to care and to ask questions if they do not understand what they are told or what they should do. See OBIX for further documentation.
[2021-11-23 20:32] LABS: Basophils Percent Auto 0.4 % (0.2-1.2); Eosinophils Absolute Auto 0.1 K/mm3 (0-0.3); Eosinophils Percent Auto 0.7 % (0-4.4); Hemoglobin 13.5 g/dL (12.0-15.0); Immature Granulocyte Absolute 0.09 K/mm3 (0.00-0.031); Immature Granulocyte Percent A 0.8 % (0-0.5); Lymphocytes Absolute Auto 1.58 K/mm3 (0.9-3.2); Lymphocytes Percent Auto 14.7 % (18.3-44.2); Mean Corpuscular HGB Conc 32.9 g/dl (32-36); Mean Corpuscular Hemoglobin 27.7 pg (26-34); Mean Corpuscular Volume 84.2 fl (80-100); Mean Platelet Volume 10.6 fl (7.4-10.4); Monocytes Absolute Auto 0.6 K/mm3 (0.1-0.6); Monocytes Percent Auto 5.6 % (2.6-8.5); Neutrophils Absolute Auto 8.3 K/mm3 (1.3-6.7); Neutrophils Percent Auto 77.8 % (45.5-73.1); Platelet Count Result 148 k/mm3 (150-375); Red Blood Count 4.87 M/mm3 (4.2-5.4); Red Cell Distribution Width 13.8 % (11.5-14.5); White Blood Count 10.7 K/mm3 (4.5-10.0)
[2021-11-23] MEDS: ONDANSETRON INJ 4 MG/2 ML VIAL IV PUSH (20:37)
[2021-11-23] MEDS: PROCHLORPERAZINE MALEATE 5 MG TABLET 10 MG PO (20:39)
[2021-11-23] MEDS: DINOPROSTONE 10 MG VAG INSERT VAGINAL (20:56)
--- NOTE | 2021-11-23 21:05 | PC.NURSE ---
Orders received to initiate induction process per Dr. Miles at 1999 on 11/23/2021.
--- NOTE | 2021-11-23 21:27 | WPDANESEPP ---
Anes - Eval Pre Procedure Procedure: labor epidural Date/Time: 11/23/21 21:27 Surgeon: phil Pre Op Diagnosis: PIH Work Up Patient Data Age: 21 Gender: F Height: 1.73 m Weight: 102 kg Last Vital Signs Pulse 89 11/23/21 21:16 BP 140/90 11/23/21 21:16 O2 Del Method Room Air 11/23/21 21:06 Allergies Allergy/AdvReac Type Severity Reaction Status Date / Time doxycycline Allergy Hives Verified 11/10/21 13:40 Penicillins Allergy Hives Verified 11/10/21 13:40 Home Medications Medication Instructions Recorded Confirmed Type ergocalciferol (vitamin D2) 50,000 50,000 unit PO MONTHLY 11/10/21 11/23/21 History unit tablet fluoxetine 20 mg capsule 20 mg PO DAILY 11/10/21 11/23/21 History vit no.133-ferrous tablet PO 11/10/21 History fumarate 28 mg-folic acid 800 mcg tablet () Laboratory Tests 11/23/21 11/23/21 11/23/21 16:39 16:39 16:39 WBC 10.8 K/mm3 H K/mm3 (4.5-10.0) RBC 4.86 M/mm3 M/mm3 (4.2-5.4) Hgb 13.5 g/dL g/dL (12.0-15.0) Hct 40.5 % % (37.0-47.0) MCV 83.3 fl fl (80-100) MCH 27.8 pg pg (26-34) MCHC 33.3 g/dl g/dl (32-36) RDW 13.6 % % (11.5-14.5) Plt Count 150 k/mm3 k/mm3 (150-375) MPV 10.8 fl H fl (7.4-10.4) Immature Gran % (Auto) 1.0 % H % (0-0.5) Neut % (Auto) 77.9 % H % (45.5-73.1) Lymph % (Auto) 13.4 % L % (18.3-44.2) [place] % (Auto) 6.5 % % (2.6-8.5) Eos % (Auto) 0.7 % % (0-4.4) Baso % (Auto) 0.5 % % (0.2-1.2) Lymph # (Auto) 1.45 K/mm3 K/mm3 (0.9-3.2) [place] # (Auto) 0.7 K/mm3 H K/mm3 (0.1-0.6) Eos # (Auto) 0.1 K/mm3 K/mm3 (0-0.3) Baso # (Auto) 0.1 K/mm3 K/mm3 (0.0-0.1) Abs Immat Gran (auto) 0.11 K/mm3 H K/mm3 (0.00-0.031) Absolute Neuts (auto) 8.4 K/mm3 H K/mm3 (1.3-6.7) Absolute Nucleated RBC 0.0 K/mm3 K/mm3 (0.0-0.012) Nucleated RBC % 0.0 % % (0.0-0.2) Sodium Potassium Chloride Carbon Dioxide Anion Gap BUN Creatinine Estim Creat Clear Calc Estimated GFR Glucose Uric Acid Calcium Total Bilirubin AST ALT Alkaline Phosphatase Total Protein Albumin Urine Color Yellow (Yellow) Urine Appearance Slightly cloudy (Clear) Urine pH 7.0 (5.0-9.0) Ur Specific [place] 1.020 (1.001-1.035) Urine Protein Negative mg/dL mg/dL (Negative) Urine Glucose (UA) Negative mg/dL mg/dL (Negative) Urine Ketones Negative mg/dL mg/dL (Negative) Ur Blood (Man) Negative (Negative) Urine Nitrate Negative (Negative) Urine Bilirubin Negative (Negative) Urine Urobilinogen 0.2 mg/dL mg/dL (<2.0) Ur Leukocyte Esterase 2+ ALFREDA/UL H ALFREDA/UL (NEGATIVE) Urine RBC 0-2 /hpf /hpf (0-2) Urine WBC 4-6 /hpf H /hpf (0-3) Ur Squamous Epith Cells Many /hpf H /hpf (Few) Urine Bacteria Trace /hpf /hpf Urine Mucus Rare /lpf /lpf U Random Total Protein 10 mg/dL mg/dL Urine Creatinine 64.9 mg/dL mg/dL Protein/Creat Ratio 2 0.15 mg/mg mg/mg (0-0.20) 11/23/21 11/23/21 16:39 19:47 WBC 10.7 K/mm3 H K/mm3 (4.5-10.0) RBC 4.87 M/mm3 M/mm3 (4.2-5.4) Hgb 13.5 g/dL g/dL (12.0-15.0) Hct 41.0 % % (37.0-47.0) MCV 84.2 fl fl (80-100) MCH 27.7 pg pg (26-34) MCHC 32.9 g/dl g/dl (32-36) RDW 13.8 % % (11.5-14.5) Plt Count 148 k/mm3 L k/mm3 (150-375) MPV 10.6 fl H fl (7.4-10.4) Immature Gran % (
--- NOTE | 2021-11-23 21:31 | PC.NURSE ---
Unable to document FHR and CXT in OBIX due to PT being transferred in the system. Documentation of pain, FHR, and CXT from & found here: : FHR: 135, Accels present, moderate variability, no decelerations noted, Cat. 1 CXT: every 2-6 min, duration: 40-90 seconds soft to palpation Pain: Pt rating CXT pain 2 on a 0-10 pain scale. Pt rating MASON pain 4 on a 0-10 pain scale. FHR: 145, Accels present, moderate variability, no decelerations noted, Cat. 1 CXT: every 2-7 min, duration: 40-60 seconds soft to palpation Pain: Pt rating CXT pain 2 on a 0-10 pain scale. Pt rating MASON pain 4 on a 0-10 pain scale.
[2021-11-23] MEDS: ACETAMINOPHEN/BUTALBITAL/CAFFEINE 325-50-40 MG TABLET (FIORICET) 1 TAB PO (23:16)
[2021-11-23] MEDS: LACTATED RINGERS 1,000 ML 75 ML IV CONT (23:18)
[2021-11-23] MEDS: MAGNESIUM SULF 4 GM/WATER100ML 4 GM/100 ML BAG IVPB (23:20)
[2021-11-23] MEDS: MAGNESIUM SULF 20GM/WATER500ML 500 ML 50 MG IV CONT (23:56)
[2021-11-24] VITALS (129 sets, daily range): BP systolic 115–167; BP diastolic 58–141; PULSE 81–139; RESP 20; TEMP 36.1–36.6; O2SAT 92–100
[2021-11-24] MEDS: ACETAMINOPHEN/BUTALBITAL/CAFFEINE 325-50-40 MG TABLET (FIORICET) 1 TAB PO ×5 (04:34→20:27)
[2021-11-24] MEDS: OXYTOCIN 30 UNITS/NS 500 ML 30 UNITS/500 ML BAG 6 UNITS IV CONT (08:37)
[2021-11-24] MEDS: fentaNYL CITRATE INJ (*CRX) 100 MCG/2 ML VIAL 50 MCG IV PUSH ×2 (08:47→11:48)
[2021-11-24] MEDS: ONDANSETRON INJ 4 MG/2 ML VIAL IV PUSH (08:59)
[2021-11-24] MEDS: MAGNESIUM SULF 20GM/WATER500ML 500 ML 50 MG IV CONT ×2 (10:02→19:56)
[2021-11-24 11:03] LABS: Rapid Plasma Reagin Non-Reactive (NonReactive)
[2021-11-24] MEDS: LACTATED RINGERS 1,000 ML 75 ML IV CONT (11:36)
[2021-11-24] MEDS: fentaNYL CITRATE INJ (*CRX) 100 MCG/2 ML VIAL IV PUSH (13:03)
--- NOTE | 2021-11-24 14:39 | PM.OBPNLAB ---
Pain Control Date/time seen: 11/24/21 14:39 Comments: This am headaches better with fioricet. cervix /-2 ROM with clear fluid VSS afebrile continue MIL
--- NOTE | 2021-11-24 16:08 | PM.OBPRVD ---
OB - Delivery Note Procedure Delivery date: 11/24/21 Procedure: Events: Preeclampsia w severe features Induction method: AROM, Per Pitocin Protocol and Per Cervidil Protocol Delivery monitor: External FHT and External Uterine Route of delivery: Laceration Description: Perineal - 2nd Degree Delivery repair: vicryl (3-0) Specimen: Yes Quantitative Blood Loss (ml): 600 Anesthesia type: Epidural Disposition: Floor Baby Date of : 11/24/21 Weeks of gestation at delivery: 35 Infant gender: Male Weight (pounds): 6 Weight (ounces): 12 presentation: vertex position: Other (right hand at neck) Placenta delivery description: Spontaneous Cord Vessel Description: 3 Vessels and Delayed Cord Clamping score one minute: 7 score five minutes: 8
--- NOTE | 2021-11-24 16:10 | PM.OBDSVD ---
DS: Admitting Diagnosis Discharge Date 11/27/21 Admitting Diagnosis IUP 35 4/7 wks for MIL due to preeclampsia DS: Discharge Diagnosis Discharge Diagnosis (1) with 34 to 36 completed weeks gestation: Status: Acute (2) Preeclampsia: Code(s): O14.90 - Unspecified pre-eclampsia, unspecified trimester Status: Acute (3) (normal spontaneous vaginal delivery): Code(s): O80 - Encounter for full-term uncomplicated delivery Status: Acute OB - DS: Summary OB Procedures : NST, PIH Mgmt and Ultrasound OB Procedures Intrapartum: Spontaneous Vag Delivery OB Procedures: : None Peripartum Data Infant Delivery Method: Natural Vaginal Laceration Description: Perineal - 2nd Degree complications: none Status at Discharge Functional status at discharge: independent ambulation Overall status at discharge: patient is progressing back to baseline Time Spent with Patient Time attestation: Total time spent providing and/or coordinating discharge services: DS: Data Data Completed and Pending Labs on day of discharge: Labs from last 24 hours 11/23/21 11/23/21 11/23/21 20:25 20:25 19:47 WBC 10.7 H RBC 4.87 Hgb 13.5 Hct 41.0 MCV 84.2 MCH 27.7 MCHC 32.9 RDW 13.8 Plt Count 148 L MPV 10.6 H Immature Gran % (Auto) 0.8 H Neut % (Auto) 77.8 H Lymph % (Auto) 14.7 L [place] % (Auto) 5.6 Eos % (Auto) 0.7 Baso % (Auto) 0.4 Lymph # (Auto) 1.58 [place] # (Auto) 0.6 Eos # (Auto) 0.1 Baso # (Auto) 0.0 Abs Immat Gran (auto) 0.09 H Absolute Neuts (auto) 8.3 H Absolute Nucleated RBC 0.0 Nucleated RBC % 0.0 Sodium Potassium Chloride Carbon Dioxide Anion Gap BUN Creatinine Estim Creat Clear Calc Estimated GFR Glucose Uric Acid Calcium Total Bilirubin AST ALT Alkaline Phosphatase Total Protein Albumin Urine Color Urine Appearance Urine pH Ur Specific [place] Urine Protein Urine Glucose (UA) Urine Ketones Ur Blood (Man) Urine Nitrate Urine Bilirubin Urine Urobilinogen Ur Leukocyte Esterase Urine RBC Urine WBC Ur Squamous Epith Cells Urine Bacteria Urine Mucus U Random Total Protein Urine Creatinine Protein/Creat Ratio 2 RPR Non-reactive Blood Type AB Positive Antibody Screen Negative 11/23/21 11/23/21 11/23/21 16:39 16:39 16:39 WBC 10.8 H RBC 4.86 Hgb 13.5 Hct 40.5 MCV 83.3 MCH 27.8 MCHC 33.3 RDW 13.6 Plt Count 150 MPV 10.8 H Immature Gran % (Auto) 1.0 H Neut % (Auto) 77.9 H Lymph % (Auto) 13.4 L [place] % (Auto) 6.5 Eos % (Auto) 0.7 Baso % (Auto) 0.5 Lymph # (Auto) 1.45 [place] # (Auto) 0.7 H Eos # (Auto) 0.1 Baso # (Auto) 0.1 Abs Immat Gran (auto) 0.11 H Absolute Neuts (auto) 8.4 H Absolute Nucleated RBC 0.0 Nucleated RBC % 0.0 Sodium 136 L Potassium 4.2 Chloride 108 H Carbon Dioxide 19 L Anion Gap 9 BUN 9 Creatinine 0.70 Estim Creat Clear Calc Not Reportable Estimated GFR > 60 Glucose 78 Uric Acid 4.6 Calcium 9.1 Total Bilirubin 0.5 AST 18 ALT 11 Alkaline Phosphatase 132 H Total Protein 7.0 Albumin 3.5 Urine Color Urine Appearance Urine pH Ur Specific [place] Urine Protein Urine Glucose (UA) Urine Ketones Ur Blood (Man) Urine Nitrate Urine Bilirubin Urine Urobilinogen Ur Leukocyte Esterase Urine RBC Urine WBC Ur Squamous Epith Cells Urine Bacteria Urine Mucus U Random Total Protein 10 Urine Creatinine 64.9 Protein/Creat Ratio 2 0.15 RPR Blood Type Antibody Screen 11/23/21 16:39 WBC RBC Hgb Hct MCV MCH MCHC RDW Plt Count MPV Immature Gran % (Auto) Neut % (Auto) Lymph % (Auto) [place] % (Auto) Eos % (Auto) Ba
[2021-11-24] MEDS: BENZOCAINE 20% AER SPR (*SP) 56 GM CAN 1 SPRAY TOPICAL (17:18)
[2021-11-24] MEDS: WITCH HAZEL 40 PADS 1 PAD TOPICAL (17:18)
[2021-11-24] MEDS: IBUPROFEN 600 MG TABLET PO (19:04)
--- NOTE | 2021-11-24 19:19 | PC.NURSE ---
pt up to commode with two RN's assisting, pt got lightheaded and passed out on commode. pt moved back to bed where fundal assessment was complete. fundus firm, U/1, scant bleeding. dariusz care completed. pt states she is feeling better and is no longer lightheaded. will continue to monitor.
[2021-11-24] MEDS: DIBUCAINE 1% OINTMENT 30 GM TUBE 1 APPLIC TOPICAL (20:27)
[2021-11-24] MEDS: FLUoxetine HCL 20 MG CAPSULE PO (20:51)
[2021-11-24 22:22] LABS: Hematocrit 33.5 % (37.0-47.0); Hemoglobin 11.2 g/dL (12.0-15.0)
--- NOTE | 2021-11-24 22:22 | PC.NURSE ---
lg. area of swelling noted on rt. labia down to buttocks, purple discoloration noted on inside of labia, no discoloration noted on skin, call to Dr. Miles --> orders
[2021-11-24] MEDS: HYDROcodone/acetaminophen (*CRX) 5-325 MG TABLET 1 TAB PO (22:45)
[2021-11-25] VITALS (7 sets, daily range): BP systolic 142–149; BP diastolic 75–91; PULSE 88–114; RESP 15–18; TEMP 36.1–37; O2SAT 96–100
[2021-11-25 05:04] LABS: Hematocrit 33.1 % (37.0-47.0); Hemoglobin 10.6 g/dL (12.0-15.0)
[2021-11-25] MEDS: MAGNESIUM SULF 20GM/WATER500ML 500 ML 50 MG IV CONT (06:39)
--- NOTE | 2021-11-25 08:35 | PM.OBPNVD ---
OB - PN: Subj Subjective Date/time seen: 11/25/21 08:35 Patient comments: no complaints, pain well controlled, incisional pain and tolerating diet [place] baby status: doing well OB - PN: Obj Data Labs CBC & Chem 7: 11/25/21 04:43 11/23/21 16:39 Labs: Laboratory Results - last 24 hr 11/23/21 11/24/21 11/25/21 20:25 22:11 04:43 Hgb 11.2 L 10.6 L Hct 33.5 L 33.1 L RPR Non-reactive OB - PN A/P Assessment and Plan (1) Preeclampsia: Code(s): O14.90 - Unspecified pre-eclampsia, unspecified trimester Status: Acute Assessment and Plan: BP stable I/O's ok DC raymond when magnesium dc Magnesium x 24 hours Plan day: 1 Plan: routine care Time Spent With Patient Time: Total time spent is greater than 50% in coordination of care (as documented) at patient's floor/unit and/or counseling patient: Exam Narrative: hematoma noted perineum : Bimanual exam- vagina & uterus: other (Uterus firm, nt @U)
--- NOTE | 2021-11-25 11:19 | PC.NURSE ---
0765 - Infant is in the nursery at this time. Primary RN reported that mother is sleeping and the plan is for her to sleep for another 2 hours. Mother and are recovering from an early delivery at 35 w 4/7 d. Mother is on Magnesium Sulfate and infant has been ordered to be NPO through the night receiving D10 through an IV. 0850 - Report received that mother had pumped. [id number] Introductions were made, then consulted with patient to assess needs related to . Mother led the conversation with her experience feeding her infant so far which has been no feedings at all and she is skin to skin with now. D10 has been discontinued. Mother states she pumped and dumped her colostrum that she pumped per instruction that was given to her from a professional. Mother works well with her infant with encouragement and education. Encouraged understanding of the benefits of skin to skin (unwrapping infant and placing vertically on her chest), responsive feeding and how to watch for early feeding signs, frequency of feeding on demand about every 8-12 times in 24 hours (every 2-3 hours), milk production, duration of feeding, signs of adequate intake/output and how to record on the feeding sheet. Nipple care reviewed with optimal latch and good positioning. Reviewed good handwashing when or touching the breast/nipples to prevent infection. Breast pump provided due to separation with prior to RN shift. Instructions given on cleaning, care, usage, there should be no pain, pumping schedule for milk production, collection, and storage of human milk. Parents are encouraged to record pumping schedule on the feeding sheet. Patient was assessed for correct placement, flange size, to pump for comfort and nipple stretching/stimulation for adequate milk production. Parents voiced understanding of the education shared. Resources used to facilitate learning were used with the tool/mom and baby guide. Mother voiced understanding of responsive feedings, stimulating with skin to skin, hand expressed colostrum, touch, talking to infant to encourage if it has been 2 -3 hours since the start of the last , to call if does not latch or there is discomfort with . Reported to the primary RN. [id number] Clarified and confirmed with parents that mom does not need to pump and dump. Reviewed milk production as it pertains to mother's medical history, pumping consistently if there's no latch feeding to what is pumped. Parents voiced understanding of education and will call for assistance if infant doesn't wake to breastfeed, reviewed stimulating to wake and eat.
[2021-11-25] MEDS: IBUPROFEN 600 MG TABLET PO (20:30)
[2021-11-25] MEDS: DOCUSATE SODIUM 100 MG CAPSULE PO (20:50)
[2021-11-25] MEDS: FLUoxetine HCL 20 MG CAPSULE PO (20:51)
[2021-11-26 07:38] VITALS: BP 137/77; PULSE 86; RESP 18; TEMP 36.8; O2SAT 98
--- NOTE | 2021-11-26 09:19 | PM.OBDSVD ---
DS: Admitting Diagnosis Discharge Date 11/27/2021 Admitting Diagnosis OB - DS: Summary OB Procedures : None OB Procedures Intrapartum: Spontaneous Vag Delivery OB Procedures: : None Time Spent with Patient Time attestation: Total time spent providing and/or coordinating discharge services: DS: Data Data Completed and Pending Pending studies at discharge: Pending at discharge 11/24/21 15:57 Surgical [PTH] Routine Discharge Plan Discharge Attending physician on discharge: Wendy Miles Discharging Clinician: Simone Hassan Anticipated Discharge Date/Time: 11/26/21 16:11 Patient Disposition: Home, Self-Care Activity: may shower, may drive after 2 weeks and pelvic rest Diet: regular Patient Instructions: Antibiotic Form Stand Alone Forms: General Discharge Information Follow-up/Referrals: Wendy Miles MD [Physician] - 1 Week (and 6 wk) Discharge Medications: New ibuprofen 600 mg Tablet 600 mg PO Q6H PRN (Reason: Cramping) Qty: 30 0RF Continued ergocalciferol (vitamin D2) 50,000 unit Tablet 50,000 unit PO MONTHLY fluoxetine 20 mg Capsule 20 mg PO DAILY 28-800 mg-mcg Tablet PO Date of admission: 11/23/21 20:08 Primary Care Provider: PHYSICIAN,AUTOMOT[employer] SALES ASSOCIATE Admitting Provider: Wendy Miles Attending physician on admission: Wendy Miles Condition: Stable
[2021-11-26 12:20] VITALS: BP 138/83; PULSE 89; RESP 18; TEMP 37.3; O2SAT 100
[2021-11-26] MEDS: DOCUSATE SODIUM 100 MG CAPSULE PO (12:47)
[2021-11-26] MEDS: MULTIVIT/MIN/PREN/FOL AC/IRON TABLET 1 TAB PO (12:47)
[2021-11-26] MEDS: IBUPROFEN 600 MG TABLET PO ×2 (16:35→22:53)
[2021-11-26 19:30] VITALS: BP 142/90; PULSE 97; RESP 16; TEMP 36.6; O2SAT 99
[2021-11-26] MEDS: FLUoxetine HCL 20 MG CAPSULE PO (21:27)
[2021-11-26 23:00] VITALS: BP 129/84; PULSE 81
[2021-11-27 03:10] VITALS: BP 144/83; PULSE 80
[2021-11-27] MEDS: IBUPROFEN 600 MG TABLET PO (05:23)
[2021-11-27 07:30] VITALS: BP 119/70; PULSE 101; RESP 18; TEMP 35.9
[2021-11-27] MEDS: DOCUSATE SODIUM 100 MG CAPSULE PO (10:27)
[2021-11-27] MEDS: MULTIVIT/MIN/PREN/FOL AC/IRON TABLET 1 TAB PO (10:27)
[2021-11-29 11:09] VITALS: BP 130/77; PULSE 99; RESP 20; TEMP 37.5; O2SAT 99
== END 2021-11-27 12:10 | disposition home or self-care (01) | DRG 807 ==
LOC: ANHLDR 11-24 16:11 → ANHOB2 11-27 10:40 → ANHLDR 11-30 11:01 → ANHOB2 11-30 11:01
PROVIDERS: Admitting Provider Obstetrics & Gynecology Gynecology; Visit Provider Obstetrics & Gynecology
DX: O14.94 Unspecified pre-eclampsia, complicating childbirth (principal); Z37.0 Single live birth; O76 Abnormality in fetal heart rate and rhythm complicating labor and delivery; O70.1 Second degree perineal laceration during delivery; O14.14 Severe pre-eclampsia complicating childbirth; Z3A.35 35 weeks gestation of pregnancy
CPT/HCPCS: 36415; 59025; 80053; 81001; 82570; 84156; 84550; 85014; 85018; 85025; 86592; 86850; 86900; 86901; 87086; 88307; A9270; J2405; J2590; J2795; J3010; J3475; J7120

== ENCOUNTER 2023-02-06 08:57 | Outpatient (CLI) | payer OTHER, SELFPAY ==
--- NOTE | ~2023-02-06 | US_ITS ---
EXAMINATION: US OB <= 14 weeks fetus DATE: 02/06/2023 09:33 INDICATION: Assess viability during first trimester TECHNIQUE: Real-time pelvic ultrasound utilizing transabdominal probe was performed. The arthur abernathy radiologist was not present for the study. COMPARISON: None. FINDINGS: The uterus measures 10.5 x 6.6 x 6.0 cm. There is an intrauterine gestational sac. A yolk sac and fe iris pole are identified. The crown rump length measures 2.9 cm, which correlates with an estimated ge stational age of 9 weeks and 5 days. heart motion is identified measuring 148 beats per minute (bpm) by M-mode Doppler. Vascular flow seen at both ovaries on color Doppler. There is no free fluid in the pelvis. IMPRESSION: 1. Single living fetus with heart rate of 148 bpm. 2. Gestational age by ultrasound of 9 weeks 5 day(s) +/- 6 day(s) with ultrasound estimated date of delivery ([facility]) of 09/07/2023. Reviewed, dictated and finalized at location L. IMPRESSION: 1. Single living fetus with heart rate of 148 bpm. 2. Gestational age by ultrasound of 9 weeks 5 day(s) +/- 6 day(s) with ultraso und estimated date of delivery ([facility]) of 09/07/2023.
== END 2023-02-06 08:58 | disposition home or self-care (01) ==
PROVIDERS: Visit Provider Obstetrics & Gynecology Gynecology
DX: O36.80X0 Pregnancy with inconclusive fetal viability, not applicable or unspecified (principal); Z3A.09 9 weeks gestation of pregnancy
CPT/HCPCS: 76801

== ENCOUNTER 2023-04-12 14:44 | Outpatient (CLI) | payer OTHER, SELFPAY ==
--- NOTE | ~2023-04-12 | US_ITS ---
EXAMINATION: US OB /maternal detail DATE: 04/12/2023 17:49 INDICATION: survey TECHNIQUE: Multiple obstetric sonographic images performed. FINDINGS: Comparison ultrasound dated 02/06/2023 There is a single living fetus in breech presentation. The placenta is posterior/left without placen ta previa.. Placental margin greater than 5 cm from the cervix. Amniotic fluid volume is normal. TJ measures 14.7 cm. cardiac activity and movement is noted with a heart rate of 138 beats per minute. The following anatomy was identified as normal: 4 chamber heart 3 vessel cord cord insertion kidneys urinary bladder stomach spine diaphragm ventricles cisterna magna cerebellum The following biometric data were obtained: BPD: 39mm corresponds to gestational age 17 weeks 5 days. Head circumference: 151 mm corresponds to gestational age 18 weeks 1 days. Abdominal circumference: 124 mm corresponds to gestational age 18 weeks 0 days. Femur length: 26 mm corresponds to gestational age 18 weeks 0 days. Head circumference to abdominal circumference ratio: 1.22 (normal range for expected gestational age is 1.08-1.27). Estimated weight: 218 grams +/- 33 grams using Hadlock method. IMPRESSION: 1: Single living intrauterine with an estimated gestational age of 18weeks 6days by initial ultrasound measurements, with an EDC of 09/07/2023 in breech presentation. 2. Normal survey. Reviewed, dictated and finalized at location A. IMPRESSION: 1: Single living intrauterine with an estimated gestational age of 18 weeks 6days by initial ultrasound measurements, with an EDC of 09/07/2023 in br eech presentation. 2. Normal survey.
== END 2023-04-12 14:45 | disposition home or self-care (01) ==
PROVIDERS: Visit Provider Advanced Practice Midwife
DX: Z36.9 Encounter for antenatal screening, unspecified (principal); Z3A.18 18 weeks gestation of pregnancy
CPT/HCPCS: 76805

== ENCOUNTER 2023-04-14 08:02 | Emergency (ER) | payer OTHER, SELFPAY ==
[2023-04-14 08:07] VITALS: BP 128/80; PULSE 97; RESP 16; TEMP 36.4; O2SAT 97
--- NOTE | 2023-04-14 08:14 | ED.URI ---
HPI - URI/Sore Throat General Chief Complaint: Upper Respiratory Infection Stated Complaint: Sinus Congestion Time Seen by Provider: 04/14/23 08:15 Source: patient Mode of arrival: ambulatory Limitations: no limitations History of Present Illness HPI Narrative: 22-year-old female presents with complaint of congestion, postnasal drainage, chest congestion, cough, sinus pressure for the past 4-5 weeks. Patient is 19 weeks . Was unsure of what medication she can take to treat her symptoms. Is concerned that she has a sinus infection. Afebrile. No chest pain or shortness of breath. Had negative home COVID test. All systems reviewed and negative except as noted above. Related Data Home Medications Medication Instructions Recorded Confirmed fluoxetine 20 mg capsule 20 mg PO DAILY 11/10/21 04/14/23 vit no.133-ferrous 1 tablet PO DAILY 11/10/21 04/14/23 fumarate 28 mg-folic acid 800 mcg tablet () aspirin 81 mg tablet,delayed 81 mg PO DAILY 04/14/23 04/14/23 release (Adult Low Dose Aspirin) ergocalciferol (vitamin D2) 1,250 1,250 mcg PO WEEKLY 04/14/23 04/14/23 mcg (50,000 unit) capsule Allergies Allergy/AdvReac Type Severity Reaction Status Date / Time doxycycline Allergy Intermediate Hives Verified 04/14/23 08:20 Penicillins Allergy Intermediate Hives Verified 04/14/23 08:20 Review of Systems Review of Systems: CONSTITUTIONAL: Denies fever, chills, or sweats. EYES: Denies visual changes, redness, or discharge. ENT: Reports rhinorrhea, congestion. Denies sore throat, or otalgia. CARDIOVASCULAR: Denies chest pain, palpitations, or edema. RESPIRATORY: Reports cough. Denies dyspnea. GASTROINTESTINAL: Denies abdominal pain, nausea, vomiting, or diarrhea. GENITOURINARY: Denies dysuria or hematuria. SKIN: Denies rash or itching. MUSCULOSKELETAL: Denies back pain, joint pain, or myalgia. NEUROLOGIC: Denies headache, numbness, or weakness. PSYCHIATRIC: Denies anxiety or depression. All other systems reviewed are negative, except as documented in HPI. [facility] Social History Social History Smoking status: Never smoker Second hand tobacco smoke exposure: No Comments At time of signature, agree with nursing past medical, surgical, social and family history. There is no relevant family history pertinent to the presenting complaint. Exam Narrative: GENERAL: This is a well-nourished, well-developed patient, in no apparent distress. HEAD: normocephalic, atraumatic. EYES: PERRL. Sclera clear/white. Vision is grossly intact. EARS: External ears normal, auditory canals clear and without drainage, clear fluid to bilateral TMs without erythema or perforation. Hearing grossly intact. NOSE: External nose normal with clear nasal drainage, erythema swelling to bilateral nares with bilateral ethmoid sinus tenderness. THROAT: Mucous membranes moist, clear postnasal drainage without erythema. NECK: Neck supple, non-tender without lymphadenopathy, masses or thyromegaly. CARDIOVASCULAR: Regular rate and rhythm without murmurs, gallops, or rubs. RESPIRATORY: Clear to auscultation. Breath sounds equal bilaterally. No wheezes, rales, or rhonchi. SKIN: warm, Dry, intact with no suspicious lesions or rash, good texture and turgor. NEURO: awake, alert, and oriented to person, place and time. There were no obvious focal neurologic abnormalities. EXTREMITIES: No joint tenderness, effusion, or edema noted. Course Course Level of Care: Express Care Visit Vital Signs Vital signs: Vital Signs Temperature 36.4 C 04/14/23 08:07 Pulse Rate 97 04/14/23 08:07 Respiratory Rate 16 04/14/23 08:07 Blood Pressure 128/80 04/14/23 08:07 Pulse Oximetry 97 04/14/23 08:07 Oxygen Delivery Room Air 04/14/23 08:07 Temperature 36.4 C 04/14/23 08:07 Pulse Rate 97 04/14/23 08:07 Respiratory Rate 16 04/14/23 08:07 Blood Pressure 128/80 04/14/23 08:07 Pulse Oximetry 97 10
== END 2023-04-14 08:28 | disposition home or self-care (01) ==
PROVIDERS: Emergency Provider Nurse Practitioner Family; PCP Obstetrics & Gynecology Gynecology
DX: J01.90 Acute sinusitis, unspecified (principal)
CPT/HCPCS: 99213; G0463

== ENCOUNTER 2023-05-27 12:17 | Observation (INO) | payer OTHER, SELFPAY ==
--- NOTE | ~2023-05-27 | US_ITS ---
EXAMINATION: US OB limited DATE: 05/27/2023 16:06 INDICATION: bleeding; check placenta . TECHNIQUE: Real-time ultrasound of the pelvis was performed. COMPARISON: 04/12/2023. FINDINGS: There is a single living fetus in vertex presentation. The cervix was visualized during the examinati on and is long and closed (verified with the technologist). The placenta is posterior, well clear of the cervix. heart rate is 134 bpm. The deepest amniotic fluid vertical pocket measured 4.5 cm w hich is within normal limits. IMPRESSION: Single living fetus in vertex presentation. Posterior placenta, well clear of the cervix. . Reviewed, dictated and finalized at location K. SHANK COVERER
[2023-05-27 12:45] VITALS: BP 124/63; PULSE 85
[2023-05-27 13:00] VITALS: BP 114/63; PULSE 83
[2023-05-27 13:29] VITALS: BMI 33.8
--- NOTE | 2023-05-27 13:31 | OBADM ---
This patient, Caron Horton, admitted to the OB room OB Post 116 for observation. Patient/family oriented to hospital policies and general routines including ID bracelet, bed and alarms, visiting hours, pain management, procedures, bathroom and other care routines, personal items, smoking policy, room service/diet, and visiting hours. Patient/Family are encouraged to report perceived risks to care and to ask questions if they do not understand what they are told or what they should do.
[2023-05-27 13:42] LABS: Appearance Urine Clear (Clear); Bacteria Urine Rare /hpf; Bilirubin Urine Negative (Negative); Blood Urine Negative (Negative); Color Urine Yellow (Yellow); Glucose Urine UA Negative (Negative); Ketones Urine Trace mg/dL (Negative); Leukocyte Esterase Ur 1+ LEU/UL (Negative); Need Manual Microscopic Reviewed; Nitrate Urine Negative (Negative); Non Pathogenic Casts 0-2; Protein Urine Negative (Negative); RBC Urine 0-2 /hpf (0-2); Specific Grav Ur 1.015 (1.001-1.035); Squamous Epithelial Cell Urine Few /hpf (Few); Urobilinogen Urine 0.2 mg/dL (<2.0); WBC Urine 0-5 /hpf; pH Urine 6.5 (5.0-9.0)
[2023-05-27 13:43] LABS: Add Urine Microscopic? YES
[2023-05-27 13:54] VITALS: BP 124/62; PULSE 83
[2023-05-27 14:53] VITALS: TEMP 36.3
--- NOTE | 2023-05-27 16:31 | PC.NURSE ---
1540--to US per wheelchair.
--- NOTE | 2023-05-27 16:35 | PC.NURSE ---
1600--Pt reports no bleeding after using bathroom. Lower abdominal pressure remains but is not any worse and not painful.
--- NOTE | 2023-05-27 16:38 | PC.NURSE ---
1345--Pt report small smear of blood after wiping.
--- NOTE | 2023-06-11 11:54 | P.PNOB_ITS ---
OB - Triage/Final Diagnosis Visit Information Comments/Additional reasons for admission: I have assessed the risk for this patient, Caron Horton, and determined that she would benefit from observation care. Evaluation Laboratory results: Laboratory Tests 05/27/23 13:21 Urine Color Yellow Urine Appearance Clear Urine pH 6.5 Ur Specific [place] 1.015 Urine Protein Negative Urine Glucose (UA) Negative Urine Ketones Trace H Ur Blood (Man) Negative Urine Nitrate Negative Urine Bilirubin Negative Urine Urobilinogen 0.2 Add Ur Microanalysis Reviewed Leukocyte Esterase Rfl 1+ H Urine RBC 0-2 Urine WBC 0-5 Ur Squamous Epith Cells Few Urine Bacteria Rare Urine Casts 0-2 Final Diagnosis (1) Spotting complicating , third trimester: Code(s): O26.853 - Spotting complicating , third trimester Status: Acute (2) Cramping complicating , antepartum: Code(s): O26.899 - Other specified related conditions, unspecified trimester; R10.9 - Unspecified abdominal pain Status: Acute
== END 2023-05-27 16:30 | disposition home or self-care (01) ==
PROVIDERS: Admitting Provider Obstetrics & Gynecology; Visit Provider Obstetrics & Gynecology
DX: O26.853 Spotting complicating pregnancy, third trimester (principal); O26.893 Other specified pregnancy related conditions, third trimester; R10.9 Unspecified abdominal pain; Z3A.00 Weeks of gestation of pregnancy not specified
CPT/HCPCS: 76815; 81001; G0378; G0379

== ENCOUNTER 2023-07-01 08:05 | Emergency (ER) | payer OTHER, SELFPAY ==
[2023-07-01 08:10] VITALS: BP 125/71; PULSE 105; RESP 18; TEMP 36.7; O2SAT 98
--- NOTE | 2023-07-01 08:11 | ED.DENTAL ---
HPI - Dental/Oral General Chief complaint: Dental/Oral Stated complaint: sore on tongue/swollen nodes Source: patient, RN notes reviewed and old records reviewed Mode of arrival: ambulatory Limitations: no limitations History of Present Illness HPI Narrative: 22-year-old female presents to [facility] with complaint sores on tongue, and right jaw pain, swelling this started 1-2 days ago. Patient denies sore throat, patient denies dental pain, patient denies fevers, or any other complaints. Patient tried warm salt water gargles with no relief. Patient is 30 weeks Related Data Home Medications Medication Instructions Recorded Confirmed fluoxetine 20 mg capsule 20 mg PO DAILY 11/10/21 07/01/23 vit no.133-ferrous 1 tablet PO DAILY 11/10/21 07/01/23 fumarate 28 mg-folic acid 800 mcg tablet () aspirin 81 mg tablet,delayed 81 mg PO DAILY 04/14/23 07/01/23 release (Adult Low Dose Aspirin) ergocalciferol (vitamin D2) 1,250 1,250 mcg PO WEEKLY 04/14/23 07/01/23 mcg (50,000 unit) capsule Allergies Allergy/AdvReac Type Severity Reaction Status Date / Time doxycycline Allergy Intermediate Hives Verified 07/01/23 08:32 Penicillins Allergy Intermediate Hives Verified 07/01/23 08:32 Review of Systems Constitutional: Constitutional: Reports no additional constitutional complaints, Denies body ache(s), Denies chills, Denies fatigue, Denies fever(s) and Denies headache(s) Eyes: Eyes: Reports no additional eye complaints and Denies blurry vision ENT: Reports system reviewed and no additional complaints, except as documented, Denies vertigo, Denies dizziness, Denies ear discharge, Denies otalgia, Reports facial pain, Denies headache(s), Denies nasal congestion, Denies nasal discharge, Denies sinus pain, Denies sinus pressure and Denies sore throat Comments: source and pain on tongue with right jaw swelling Cardiovascular: Cardiovascular: Reports no additional cardiovascular complaints, Denies chest pain, Denies chest pain at rest, Denies rapid heart rate and Denies dyspnea Respiratory: Respiratory: Reports no additional respiratory complaints, Denies chest congestion, Denies cough, Denies pain on inspiration, Denies pain with cough and Denies dyspnea Gastrointestinal: Gastrointestinal: Denies abdominal pain, Denies diarrhea, Denies nausea and Denies vomiting Integumentary/Breasts: Skin/Breast: Denies rash Neurologic: Reports system reviewed and no additional complaints, except as documented, Denies vertigo, Denies dizziness and Denies headache(s) Endocrine: Endocrine: Denies fatigue PMFSH Social History Social History Smoking status: Never smoker Second hand tobacco smoke exposure: No Comments At the time of my signature, I reviewed and agree with the nursing past medical, surgical, social, and family history. There is no relevant family history pertinent to the patient complaint. Exam Const: General: cooperative, healthy appearing, no acute distress and well nourished Nutritional Appearance: well nourished Orientation/consciousness: patient oriented x3 Limitations: no limitations HENMT: Head: normal to inspection and normocephalic Ears: external ears normal, TM's normal bilaterally, mastoids normal and Abnormal EAC present Face/Nose/Sinus: normal facial exam Face and sinus: normal facial exam Mouth: Yes Normal oral and palatal mucosa present, Yes oropharynx normal, Yes moist mucous membranes and Yes Abnormal oral and palatal mucosa present erythematous, ulceration of the soft palate, white patches and lesions Teeth and gingiva: dentition normal Throat: tonsils normal, uvula midline and no uvular edema Other: small white lesions noted to tongue and posterior oropharynx Eyes: General: appearance normal, both eyes and all related structures Sclera: sclerae normal Pupils: Equal, round and reactive pupils present Resp
[2023-07-01 08:15] VITALS: BP 125/71; PULSE 105; RESP 18; TEMP 36.7; O2SAT 98
== END 2023-07-01 08:43 | disposition home or self-care (01) ==
PROVIDERS: Emergency Provider Registered Nurse
DX: K13.79 Other lesions of oral mucosa (principal)
CPT/HCPCS: 87081; 87880; 99213; G0463

== ENCOUNTER 2023-07-02 14:16 | Emergency (ER) | payer OTHER, SELFPAY ==
[2023-07-02 14:24] VITALS: BP 147/74; PULSE 104; RESP 20; TEMP 36.2; O2SAT 97
--- NOTE | 2023-07-02 15:05 | ED.URI ---
HPI - URI/Sore Throat General Chief Complaint: Upper Respiratory Infection Stated Complaint: ears/throat Time Seen by Provider: 07/02/23 15:00 Source: patient, RN notes reviewed and old records reviewed Mode of arrival: ambulatory Limitations: no limitations History of Present Illness HPI Narrative: 22 year old female presents to [facility] care with complaints of ulcers on tongue, sore throat and swollen right lymph nodes and pain to her right ear. Patient was seen in clinic yesterday and had negative strep screen and was prescribed some peridex mouth was which patient states does not help her discomfort on her tongue. Patient is 30 weeks , has been taking some Tylenol also for her discomfort. MD elicited complaint: sore throat and other (tongue ulcers, right ear pain) Onset (ago): day(s) (4) Pain scale (0-10): 8 Treatments prior to arrival: acetaminophen and other (peridex mouth wash) Related Data Home Medications Medication Instructions Recorded Confirmed fluoxetine 20 mg capsule 20 mg PO DAILY 11/10/21 07/03/23 vit no.133-ferrous 1 tablet PO DAILY 11/10/21 07/03/23 fumarate 28 mg-folic acid 800 mcg tablet () Allergies Allergy/AdvReac Type Severity Reaction Status Date / Time doxycycline Allergy Intermediate Hives Verified 07/03/23 16:28 Penicillins Allergy Intermediate Hives Verified 07/03/23 16:28 Review of Systems Review of Systems: CONSTITUTIONAL: Denies malaise, chills, sweats, or fever. EYES: Denies visual changes, redness, or discharge. ENT: Reports rhinorrhea, congestion,no sinus pain, right otalgia and positive for sore throat. CARDIOVASCULAR: Denies chest pain, palpitations, or edema. RESPIRATORY: Reports no cough.? Denies dyspnea. GASTROINTESTINAL: Denies abdominal pain, nausea, vomiting, diarrhea SKIN: Denies rash or itching. MUSCULOSKELETAL: Denies myalgia. NEUROLOGIC: Denies headache. All systems reviewed & are unremarkable except as noted in HPI and below PMFSH Past Medical History Medical History (Updated 07/04/23 @ 12:14 by Ally Ndiaye NP) Anxiety and depression Preeclampsia Social History Social History Smoking status: Never smoker Second hand tobacco smoke exposure: No Comments At time of signature, agree with nursing past medical, surgical, social and family history. There is no relevant family history pertinent to the presenting complaint Exam Narrative: GENERAL: Well-appearing, well-nourished, and in no acute distress. HEAD: Normocephalic EYES: PERRLA, conjunctivae clear ENT: Nares clear, turbinates edematous and erythematous, clear discharge. Mucous membranes moist.Right TM red, Left TM pearly joshua with dull light reflex; no tragal tenderness. Oropharynx erythematous without lesions. Tonsils not enlarged and without exudate, no drooling, no hoarseness, no trismus, uvula midline.tongue has red excoriated lesions on right side NECK: Supple.right lymphadenopathy CHEST: Clear to auscultation, breath sounds equal. No wheezing, rhonchi, rales, or stridor. No respiratory distress, speaks in full sentences.no cough note SAO2 97% on room air HEART: Regular rate and rhythm. No murmur heard. SKIN: Warm, dry, no rash. NEURO: Alert and oriented x3. PSYCH: Normal mood and affect Course Course Emergency Course: Patient is aware of diagnosis, understands and agrees to treatment plan.? Anticipatory guidance given.? Patient agrees to follow-up as directed and is aware of reasons to seek care at the emergency department. Portions of this record may have been created with voice recognition software Level of Care: Express Care Visit Vital Signs Vital signs: Vital Signs Temperature 36.2 C L 07/02/23 14:24 Pulse Rate 104 H 07/02/23 14:24 Respiratory Rate 20 07/02/23 14:24 Blood Pressure 147/74 H 07/02/23 14:24 Pulse Oximetry 97 07/02/23 14:24 Oxyg
== END 2023-07-02 15:25 | disposition home or self-care (01) ==
PROVIDERS: Emergency Provider Registered Nurse
DX: O99.891 Other specified diseases and conditions complicating pregnancy (principal); H66.91 Otitis media, unspecified, right ear; O99.613 Diseases of the digestive system complicating pregnancy, third trimester; K13.70 Unspecified lesions of oral mucosa; O99.343 Other mental disorders complicating pregnancy, third trimester; F41.9 Anxiety disorder, unspecified; F32.A Depression, unspecified; Z3A.30 30 weeks gestation of pregnancy
CPT/HCPCS: 99213; G0463

== ENCOUNTER 2023-07-03 16:00 | Observation (INO) | payer OTHER, SELFPAY ==
[2023-07-03 16:19] VITALS: BP 136/78; PULSE 96
[2023-07-03 16:20] VITALS: BMI 33.5
--- NOTE | 2023-07-03 16:21 | LDADM ---
This patient, Caron Horton, was admitted to [facility] Post [facility] on 07/03/23 at 16:00. Plans for labor, pain management and were discussed with patient. Patient/family oriented to hospital policies and general routines including ID bracelet, bed and alarms, visiting hours, pain management, procedures, bathroom and other care routines, personal items, smoking policy, room service/diet and guest tray routines, infant security routines, and visiting hours. Patient/Family are encouraged to report perceived risks to care and to ask questions if they do not understand what they are told or what they should do. See OBIX for further documentation.
[2023-07-03 16:31] VITALS: BP 98/79; PULSE 95
[2023-07-03 16:35] LABS: Basophils Percent Auto 0.5 % (0.2-1.2); Eosinophils Absolute Auto 0.1 K/mm3 (0-0.3); Eosinophils Percent Auto 0.9 % (0-4.4); Hematocrit 37.3 % (37.0-47.0); Hemoglobin 12.4 g/dL (12.0-15.0); Immature Granulocyte Absolute 0.09 K/mm3 (0.00-0.031); Immature Granulocyte Percent A 1.4 % (0-0.5); Lymphocytes Absolute Auto 1.45 K/mm3 (0.9-3.2); Lymphocytes Percent Auto 22.7 % (18.3-44.2); Mean Corpuscular HGB Conc 33.2 g/dl (32-36); Mean Corpuscular Hemoglobin 26.5 pg (26-34); Mean Corpuscular Volume 79.7 fl (80-100); Mean Platelet Volume 9.5 fl (7.4-10.4); Monocytes Absolute Auto 0.4 K/mm3 (0.1-0.6); Monocytes Percent Auto 6.9 % (2.6-8.5); Neutrophils Absolute Auto 4.3 K/mm3 (1.3-6.7); Neutrophils Percent Auto 67.6 % (45.5-73.1); Platelet Count Result 182 k/mm3 (150-375); Red Blood Count 4.68 M/mm3 (4.2-5.4); Red Cell Distribution Width 13.7 % (11.5-14.5); White Blood Count 6.4 K/mm3 (4.5-10.0)
[2023-07-03] MEDS: DEXTROSE 5%/LACTATED RINGERS 1,000 ML 999 ML IV CONT (16:35)
[2023-07-03 16:46] VITALS: BP 125/79; PULSE 89
[2023-07-03 16:57] LABS: Alanine Aminotransferase 11 U/L (6-35); Albumin Level 3.4 g/dL (3.5-5.1); Alkaline Phosphatase 106 U/L (38-126); Anion Gap 11 mmol/L (8-16); Aspartate Amino Transferase 17 U/L (14-36); Bilirubin,Total 0.7 mg/dL (0.2-1.3); Blood Urea Nitrogen 5 mg/dL (7-17); Calcium 8.5 mg/dL (8.4-10.2); Carbon Dioxide 18 mmol/L (22-30); Chloride 106 mmol/L (98-107); Estimated CRCL calculation 153 ml/min; Estimated Glomerular Filt Rate > 60; Glucose 89 mg/dL (65-110); Potassium 3.2 mmol/L (3.4-5.0); Sodium 135 mmol/L (137-145)
[2023-07-03 17:01] VITALS: BP 132/73; PULSE 92
[2023-07-03 17:16] VITALS: BP 129/76; PULSE 92
[2023-07-03 17:31] VITALS: BP 130/78; PULSE 93
[2023-07-03] MEDS: DEXTROSE 5%/LACTATED RINGERS 1,000 ML 175 ML IV CONT (17:33)
--- NOTE | 2023-07-03 17:40 | PC.NURSE ---
Obtained ordered labs and NST. Called MD with lab results and NST results. Notified MD that first bag of D5LR has infused. MD orders to change second bag of fluids to D5NS. Per MD, patient needs to receive full infusion of second bag and may discharge home after infusion if patient has no new complaints. Per MD, may run second bag of fluids faster than 175 ml/hr because patient wishes to discharge home soon. Patient agrees with plan of care and has no questions at this time.
[2023-07-03] MEDS: DEXTROSE 5%/0.9% SOD CHL 1,000 ML 175 ML IV CONT (17:53)
--- NOTE | 2023-07-05 12:07 | PM.OBTRLD ---
OB - Triage/Final Diagnosis Visit Information Reason for evaluation: other (dehydration; oral ulcerations) Comments/Additional reasons for admission: I have assessed the risk for this patient, Caron Connerzachariah, and determined that she would benefit from observation care. Evaluation Laboratory results: Laboratory Tests 07/03/23 16:28 WBC 6.4 RBC 4.68 Hgb 12.4 Hct 37.3 MCV 79.7 L MCH 26.5 MCHC 33.2 RDW 13.7 Plt Count 182 MPV 9.5 Immature Gran % (Auto) 1.4 H Neut % (Auto) 67.6 Lymph % (Auto) 22.7 [place] % (Auto) 6.9 Eos % (Auto) 0.9 Baso % (Auto) 0.5 Lymph # (Auto) 1.45 [place] # (Auto) 0.4 Eos # (Auto) 0.1 Baso # (Auto) 0.0 Abs Immat Gran (auto) 0.09 H Absolute Neuts (auto) 4.3 Absolute Nucleated RBC 0.0 Nucleated RBC % 0.0 Sodium 135 L Potassium 3.2 L Chloride 106 Carbon Dioxide 18 L Anion Gap 11 BUN 5 L Creatinine 0.60 L Estim Creat Clear Calc 153 Estimated GFR > 60 Glucose 89 Calcium 8.5 Total Bilirubin 0.7 AST 17 ALT 11 Alkaline Phosphatase 106 Total Protein 7.0 Albumin 3.4 L
== END 2023-07-03 21:47 | disposition home or self-care (01) ==
PROVIDERS: Admitting Provider Obstetrics & Gynecology Gynecology; Visit Provider Obstetrics & Gynecology Gynecology
DX: O99.283 Endocrine, nutritional and metabolic diseases complicating pregnancy, third trimester (principal); E86.0 Dehydration; O99.613 Diseases of the digestive system complicating pregnancy, third trimester; K12.1 Other forms of stomatitis; Z3A.30 30 weeks gestation of pregnancy
CPT/HCPCS: 36415; 80053; 85025; 96360; 96361; G0378; G0379; J7042; J7121

== ENCOUNTER 2023-08-10 10:48 | Outpatient (CLI) | payer OTHER, SELFPAY ==
--- NOTE | ~2023-08-10 | US_ITS ---
EXAMINATION: US OB follow up, US umbilical doppler DATE: 08/10/2023 13:01 INDICATION: growth and amniotic fluid assessment during third trimester , umbilical Do ppler TECHNIQUE: Real-time ultrasound of the pelvis was performed. The interpreting radiologist was not pre sent for the study. COMPARISON: None. FINDINGS: There is a single living fetus in vertex presentation. The placenta is posterior. car diac activity and movement are noted. heart rate is 160 beats per minute (bpm). The amnio tic fluid index is 20.8 cm which is normal (normal range: 7.7 cm to 24.9 cm). The following biometric data were obtained: Biparietal diameter (BPD): 8.6 cm; head circumference (HC): 30.9 cm; abdominal circumference (AC): 32 .2 cm; femur length (FL): 6.9 cm. These measurements are concordant. Estimated weight is 2737 g +/- 410 g, which correlates with the 42nd percentile when 09/07/2023 i s used as estimated date of delivery. As single measurements, these parameters are each equal to the following estimated gestational ages w ith ranges of +/- 2 standard deviations: BPD: 34 weeks 5 days +/- 3 weeks 1 days. HC: 34 weeks 3 days +/- 3 weeks 0 days. AC: 36 weeks 1 days +/- 3 weeks 0 days. FL: 35 weeks 5 days +/- 3 weeks 0 days. estimated gestational age based solely on measurements from this exam is 35 weeks 2 days +/- 2 weeks 3 days. Umbilical artery pulsed Doppler demonstrates peak systolic to end-diastolic velocity ratios (S/D rati os) of 2.6 near the fetus, 2.2 in the mid cord, and 2.7 near the placenta (5th percentile = 1.98, 95t h percentile = 3.29). IMPRESSION: 1. Single living fetus in vertex presentation. 2. Normal amniotic fluid index. 3. Normal umbilical artery Dopplers. 4. Estimated weight is 2737 g +/- 410 g, which correlates with the 42nd percentile when is used as estimated date of delivery. Reviewed, dictated and finalized at location B. MILL OPERATOR IMPRESSION: 1. Single living fetus in vertex presentation. 2. Normal amniotic fluid index. 3. Normal umbilical artery Dopplers. 4. Estimated weight is 2737 g +/- 410 g, which correlates with the 42nd p ercentile when 09/07/2023 is used as estimated date of delivery.
[2023-08-10 11:16] VITALS: BP 131/71; PULSE 125
[2023-08-10 11:31] VITALS: BP 127/76; PULSE 116
[2023-08-10 11:33] LABS: Alanine Aminotransferase 14 U/L (6-35); Albumin Level 3.1 g/dL (3.5-5.1); Alkaline Phosphatase 108 U/L (38-126); Anion Gap 7 mmol/L (8-16); Aspartate Amino Transferase 22 U/L (14-36); Bilirubin,Total 0.7 mg/dL (0.2-1.3); Blood Urea Nitrogen 2 mg/dL (7-17); Calcium 8.2 mg/dL (8.4-10.2); Carbon Dioxide 21 mmol/L (22-30); Chloride 104 mmol/L (98-107); Estimated Glomerular Filt Rate > 60; Glucose 145 mg/dL (65-110); Potassium 3.3 mmol/L (3.4-5.0); Sodium 132 mmol/L (137-145)
[2023-08-10 11:46] VITALS: BP 125/80; PULSE 110
[2023-08-10] MEDS: BETAMETHASONE SOD PHOS/ACETATE 30 MG/5 ML VIAL 12 MG IM (11:52)
[2023-08-10 13:01] VITALS: BMI 34.7
--- NOTE | 2023-08-10 13:20 | PC.NURSE ---
Called Micheline Pérez CNM with pt status. Informed that pt states that she no longer has a headache, only some soreness. Informed of reactive NST, lab results, U/S results, and BPs. Pt scheduled for induction on October D/C home to return tomorrow for 2nd Celestone injection.
[2023-08-10] MEDS: POTASSIUM CHLORIDE 20 MEQ ER TABLET 40 MEQ PO (13:51)
[2023-08-11] MEDS: BETAMETHASONE SOD PHOS/ACETATE 30 MG/5 ML VIAL 12 MG IM (12:15)
== END 2023-08-14 16:54 | disposition home or self-care (01) ==
LOC: ANHOBPP 08-11 11:51 → ANHOBOP 08-11 12:30
PROVIDERS: Advanced Practice Midwife; Visit Provider Obstetrics & Gynecology Gynecology
DX: O99.891 Other specified diseases and conditions complicating pregnancy (principal); G43.909 Migraine, unspecified, not intractable, without status migrainosus; Z3A.00 Weeks of gestation of pregnancy not specified
CPT/HCPCS: 36415; 59025; 76816; 76820; 80053; 96372; 99199; A9270; J0702

== ENCOUNTER 2023-08-14 16:53 | Outpatient (RCR) | payer OTHER, SELFPAY ==
--- NOTE | ~2023-08-14 | US_ITS ---
EXAMINATION: US OB limited w BPP DATE: 08/14/2023 19:14 INDICATION: Nonreactive nonstress test during third trimester of . Preeclampsia. TECHNIQUE: Real-time pelvic ultrasound was performed. The interpreting radiologist was not present fo r the study. COMPARISON: None. FINDINGS: There is a single living fetus in vertex presentation. The placenta is on the left and not low-lying . heart rate is 131 beats per minute (bpm). Amniotic fluid index of 13.0 cm which is normal (5t h%-95%: 7.7-24.9 cm at T6 weeks estimated gestational age). Mild dilation of the bilateral renal pelv ises sees, measuring 6 mm on the left and 6-7 mm on the right. Biophysical profile performed by the technologist: breathing (30 sec sustained breathing in 30 minutes): 2 out of 2 movement (3 gross body movements in 30 minutes): 2 out of 2 tone (one episode of rjdtyha-zkmuybpnh-waapojz limb movement): 2 out of 2 Amniotic fluid pocket (2 cm): 2 out of 2 Total score: 8 out of 8 IMPRESSION: 1. Single living fetus in vertex presentation with heart rate of 131 bpm. 2. Biophysical profile 8 out of 8. 3. Mild bilateral hydronephrosis with renal pelvises measuring 6 mm in the left and 6-7 mm on t he right. Reviewed, dictated and finalized at location A. NG FINISHER IMPRESSION: 1. Single living fetus in vertex presentation with heart rate of 131 bpm. 2. Biophysical profile 8 out of 8. 3. Mild bilateral hydronephrosis with renal pelvises measuring 6 mm in th e left and 6-7 mm on the right.
[2023-08-14 18:27] VITALS: BP 134/76; PULSE 84
--- NOTE | 2023-08-14 19:32 | PC.NURSE ---
Dr Miles notified about patient TJ and BPP results. Also reported status, ordered to perform NST, patient to be discharged if NST is reactive.
[2023-08-14 20:02] VITALS: PULSE 85
== END 2023-11-12 23:59 | disposition home or self-care (01) ==
LOC: ANHOBOP 16:53
PROVIDERS: Visit Provider Obstetrics & Gynecology Gynecology
DX: O14.93 Unspecified pre-eclampsia, third trimester (principal); O36.8330 Maternal care for abnormalities of the fetal heart rate or rhythm, third trimester, not applicable or unspecified; Z3A.36 36 weeks gestation of pregnancy
CPT/HCPCS: 59025; 76815; 76819; J2795

== ENCOUNTER 2023-08-17 04:52 | Inpatient (IN) | payer OTHER, SELFPAY ==
[2023-08-17] VITALS (62 sets, daily range): BP systolic 112–168; BP diastolic 62–106; PULSE 73–118; TEMP 36.1–36.2; O2SAT 93–100; BMI 33.5
[2023-08-17 05:32] LABS: Basophils Percent Auto 0.4 % (0.2-1.2); Eosinophils Absolute Auto 0.1 K/mm3 (0-0.3); Eosinophils Percent Auto 0.7 % (0-4.4); Hemoglobin 11.7 g/dL (12.0-15.0); Immature Granulocyte Absolute 0.15 K/mm3 (0.00-0.031); Lymphocytes Absolute Auto 1.96 K/mm3 (0.9-3.2); Lymphocytes Percent Auto 26.5 % (18.3-44.2); Mean Corpuscular HGB Conc 32.5 g/dl (32-36); Mean Corpuscular Hemoglobin 25.8 pg (26-34); Mean Corpuscular Volume 79.5 fl (80-100); Mean Platelet Volume 9.7 fl (7.4-10.4); Monocytes Absolute Auto 0.3 K/mm3 (0.1-0.6); Monocytes Percent Auto 4.6 % (2.6-8.5); Neutrophils Absolute Auto 4.9 K/mm3 (1.3-6.7); Neutrophils Percent Auto 65.8 % (45.5-73.1); Platelet Count Result 199 k/mm3 (150-375); Red Blood Count 4.53 M/mm3 (4.2-5.4); Red Cell Distribution Width 13.6 % (11.5-14.5); White Blood Count 7.4 K/mm3 (4.5-10.0)
[2023-08-17 05:41] LABS: Alanine Aminotransferase 36 U/L (6-35); Albumin Level 3.1 g/dL (3.5-5.1); Alkaline Phosphatase 113 U/L (38-126); Anion Gap 9 mmol/L (8-16); Aspartate Amino Transferase 36 U/L (14-36); Bilirubin,Total 0.6 mg/dL (0.2-1.3); Blood Urea Nitrogen 7 mg/dL (7-17); Calcium 8.4 mg/dL (8.4-10.2); Carbon Dioxide 17 mmol/L (22-30); Chloride 107 mmol/L (98-107); Estimated Glomerular Filt Rate > 60; Glucose 139 mg/dL (65-110); Potassium 3.3 mmol/L (3.4-5.0); Sodium 133 mmol/L (137-145)
[2023-08-17] MEDS: LACTATED RINGERS 1,000 ML 125 ML IV CONT ×2 (07:06→11:36)
[2023-08-17] MEDS: OXYTOCIN 30 UNITS/NS 500 ML 30 UNITS/500 ML BAG IV CONT (07:06)
--- NOTE | 2023-08-17 07:30 | WPDOBADMIT ---
Obstetrics - Admit Note Admission Note: record reviewed. No pertinent additions to the history and/or any subsequent changes in the physical findings that are not consistent with the expected course of the were found. Additions to the history and/or subsequent changes in the physical findings follow. None.
--- NOTE | 2023-08-17 07:32 | PM.OBPNLAB ---
Pain Control Date/time seen: 08/17/23 07:20 Pain control: tolerating well Comments: feeling occasional cramping. Pelvic Exam Dilation (cm): 4 Effacement (%): 70 station: -2 Amniotic membrane status: Intact Comments: posterior. head well applied to cervix. Contractions Monitor mode: External Contraction pattern: Irregular Contraction intensity: Mild Status status: Category ll Comments: Reassured by moderate variability and accelerations. Assessment and Plan Pitocin rate (mU/min): 2 Assessment: induction ongoing Comments: CNM to bedside. Pt reports MASON is resolved. Denies visual changes, RUQ pain, or increase in edema. BLE trace. BP normal to mild ranges. Liver enzymes noted to be increased but not double the upper end of normal. Plan PO potassium for repletion. Discussed plan of care an option for amniotomy. Discussed risks, benefits, and expectations of breaking water. Patient is agreeable. Amniotomy performed and there was a moderate return of clear amniotic fluid. Patient tolerated procedure well. Plan to titrate pitocin as needed to achieve adequate contraction pattern. Anticicipate vaginal .
[2023-08-17] MEDS: fentaNYL CITRATE INJ (*CRX) 100 MCG/2 ML VIAL 50 MCG IV PUSH (11:30)
--- NOTE | 2023-08-17 11:42 | WPDANESEPPF ---
Anes - Initial Pre Proc Eval Procedure: Labor Epidural Date/Time: 08/17/23 11:42 Surgeon: Wendy Miles MD Pre Op Diagnosis: Labor pain Pre Op Diagnosis: IOL Patient Data Age: 22 Gender: F Height: 1.73 m Weight: 100 kg Last Vital Signs Temp 36.1 C L 08/17/23 09:30 Pulse 93 08/17/23 11:31 BP 168/104 H 08/17/23 11:31 O2 Del Method Room Air 08/17/23 06:49 Allergies Allergy/AdvReac Type Severity Reaction Status Date / Time doxycycline Allergy Intermediate Hives Verified 08/10/23 14:00 Penicillins Allergy Intermediate Hives Verified 08/10/23 14:00 Home Medications Medication Instructions Recorded Confirmed Type fluoxetine 20 mg capsule 20 mg PO DAILY 11/10/21 07/03/23 History vit no.133-ferrous 1 tablet PO DAILY 11/10/21 07/03/23 History fumarate 28 mg-folic acid 800 mcg tablet () Magic Mouthwash (Dr. Rossi) 120 5 - 10 ml PO QID #120 mL 07/02/23 07/03/23 Rx mL suspension cephalexin 500 mg capsule 500 mg PO Q8H #30 caps 07/02/23 07/03/23 Rx Laboratory Tests 08/17/23 08/17/23 05:23 05:24 WBC 7.4 K/mm3 (4.5-10.0) RBC 4.53 M/mm3 (4.2-5.4) Hgb 11.7 L g/dL (12.0-15.0) Hct 36.0 L % (37.0-47.0) MCV 79.5 L fl (80-100) MCH 25.8 L pg (26-34) MCHC 32.5 g/dl (32-36) RDW 13.6 % (11.5-14.5) Plt Count 199 k/mm3 (150-375) MPV 9.7 fl (7.4-10.4) Immature Gran % (Auto) 2.0 H % (0-0.5) Neut % (Auto) 65.8 % (45.5-73.1) Lymph % (Auto) 26.5 % (18.3-44.2) [place] % (Auto) 4.6 % (2.6-8.5) Eos % (Auto) 0.7 % (0-4.4) Baso % (Auto) 0.4 % (0.2-1.2) Lymph # (Auto) 1.96 K/mm3 (0.9-3.2) [place] # (Auto) 0.3 K/mm3 (0.1-0.6) Eos # (Auto) 0.1 K/mm3 (0-0.3) Baso # (Auto) 0.0 K/mm3 (0.0-0.1) Abs Immat Gran (auto) 0.15 H K/mm3 (0.00-0.031) Absolute Neuts (auto) 4.9 K/mm3 (1.3-6.7) Absolute Nucleated RBC 0.0 K/mm3 (0.0-0.012) Nucleated RBC % 0.0 % (0.0-0.2) Sodium 133 L mmol/L (137-145) Potassium 3.3 L mmol/L (3.4-5.0) Chloride 107 mmol/L (98-107) Carbon Dioxide 17 L mmol/L (22-30) Anion Gap 9 mmol/L (8-16) BUN 7 D mg/dL (7-17) Creatinine 0.60 L mg/dL (0.7-1.0) Estim Creat Clear Calc Not Reportable Estimated GFR > 60 (59 - ) Glucose 139 H mg/dL (65-110) Calcium 8.4 mg/dL (8.4-10.2) Total Bilirubin 0.6 mg/dL (0.2-1.3) AST 36 U/L (14-36) ALT 36 H U/L (6-35) Alkaline Phosphatase 113 U/L (38-126) Total Protein 6.0 L g/dL (6.3-8.2) Albumin 3.1 L g/dL (3.5-5.1) RPR Pending Blood Type AB Positive Antibody Screen Negative : gestational age ([place] 09/07/23) Patient hx anesthesia problems: none Family hx anesthesia problems: none Results Review: All pre-operative results and documents have been reviewed as part of the pre-operative evaluation. [facility] Past Medical History Medical History Anxiety and depression Preeclampsia Family History Family History Sibling Diabetes mellitus Mother Hypertension Sibling Hypertension Grandparent Hypertension Grandparent Hypertension Father Diabetes mellitus Malignant neoplasm of prostate Social History Social History Smoking status: Never smoker Second hand tobacco smoke exposure: Yes Substance use: never Do You Feel Safe in your Home?: Yes Lack of Transportation: No Lack of Food: Never True Current Housing: I Have Housing Concerned About Future Housing: No Difficulty Paying Gas/Electric Bills: No Difficulty Paying for Meds: No Currently Unemploye
[2023-08-17] MEDS: OXYTOCIN 30 UNITS/NS 500 ML 30 UNITS/500 ML BAG 125 UNITS IV CONT (12:59)
--- NOTE | 2023-08-17 13:01 | PM.OBPRVD ---
OB - Vaginal Delivery Note Procedure Delivery date: 08/17/23 Events: Preeclampsia w/o severe features Induction method: Per Pitocin Protocol Delivery augmentation: Rupture of Membranes Delivery monitor: External FHT and External Uterine Route of delivery: Episiotomy description: None Laceration Description: Superficial (bilateral labial) Specimen: Yes Quantitative Blood Loss (ml): 300 Anesthesia type: Epidural Disposition: Floor Complications: No immediate complications Narrative: Caron arrived for IOL due to Preeclampsia. Pitocin was started and membranes were ruptured. She progressed to 5cm and requested an epidural. She made quick change to complete dialation and CNM was called for delivery. She pushed very well with contractions. She brought the head to a complete crown and delivered over an intact perineum. There was good restitution of the head and then easy delivery of the anterior and posterior shoulders followed by the remainder of the infant. The was placed on the maternal abdomen and dried and stimulated by the nursery staff. The nursery nurse called for the umbilical cord to be clamped and 2 clamps were immediately applied. The cord was cut and the was taken to the warmer. Cord blood, cord gasses, and a cord segment were obtained. The placenta delivered spontaneously. The vagina and perineum were inspected and 2 superficial bilateral labial lacerations were observed. They were hemostatic and did not require repair. All delivery counts were correct. There was excellent hemostasis and uterine tone. [place] Baby Date of : 08/17/23 Time of : 12:34 Weeks of gestation at delivery: 37 gender: Male Weight (pounds): 7 Weight (ounces): 2 presentation: vertex position: Right Occiput Anterior Placenta delivery description: Spontaneous Cord Vessel Description: 3 Vessels and Clamped/Cut (before one minute of life) score one minute: 3 score five minutes: 8
--- NOTE | 2023-08-17 13:13 | PM.OBDSVD ---
DS: Admitting Diagnosis Discharge Date 08/19/2023 Admitting Diagnosis 22 y.o. at 37 1/7 weeks Preeclampsia IOL DS: Discharge Diagnosis Discharge Diagnosis (1) Preeclampsia: Code(s): O14.90 - Unspecified pre-eclampsia, unspecified trimester Status: Acute Assessment and Plan: BPS WNL (2) Anxiety and depression: Code(s): F41.9 - Anxiety disorder, unspecified; F32.A - Depression, unspecified Status: Acute (3) (normal spontaneous vaginal delivery): Code(s): O80 - Encounter for full-term uncomplicated delivery Status: Acute (4) Mother currently breast-feeding: Code(s): Z39.1 - Encounter for care and examination of lactating mother Status: Acute OB - DS: Summary Hospital Course Hospital Course: Uncomplicated OB Procedures : NST, PIH Mgmt and Ultrasound OB Procedures Intrapartum: Spontaneous Vag Delivery OB Procedures: : None Peripartum Data Infant Delivery Method: Natural Vaginal Laceration Description: Superficial (bilateral labial) Episiotomy description: None complications: none Status at Discharge Functional status at discharge: independent ambulation Overall status at discharge: patient is progressing back to baseline Time Spent with Patient Time attestation: Total time spent providing and/or coordinating discharge services: Exam Narrative: Alert and oriented. Mood is pleasant and cooperative. Perineum with minimal edema. Fundus firm and below umbilicus. Const: General: cooperative, healthy appearing, no acute distress and alert Orientation/consciousness: patient oriented x3 Limitations: no limitations Resp: Effort & Inspection: normal respiratory effort and able to speak in complete sentences Auscultation: clear to auscultation bilaterally Cardio: Rate: regular rate GI: Inspection: normal to inspection Auscultation: normal bowel sounds : General: Yes bladder normal to palpation External Female Exam: other (lochia WNL) Bimanual exam- vagina & uterus: bladder normal to palpation Other: Fundus firm and below U Skin: General skin exam: normal color and no rashes or lesions noted Neuro: General: patient oriented x3 and moves all extremities Cognition (Neuro): normal cognition Extrem: General: normal to inspection and no calf tenderness Psych: Appearance: grossly normal Mental Status: mental status grossly normal Affect: normal affect Thought process: Normal thought process present DS: Data Data Completed and Pending Pending studies at discharge: Pending at discharge 08/17/23 12:43 Surgical [PTH] Routine Labs on day of discharge: Labs from last 24 hours 08/17/23 08/17/23 05:24 05:23 WBC 7.4 RBC 4.53 Hgb 11.7 L Hct 36.0 L MCV 79.5 L MCH 25.8 L MCHC 32.5 RDW 13.6 Plt Count 199 MPV 9.7 Immature Gran % (Auto) 2.0 H Neut % (Auto) 65.8 Lymph % (Auto) 26.5 [place] % (Auto) 4.6 Eos % (Auto) 0.7 Baso % (Auto) 0.4 Lymph # (Auto) 1.96 [place] # (Auto) 0.3 Eos # (Auto) 0.1 Baso # (Auto) 0.0 Abs Immat Gran (auto) 0.15 H Absolute Neuts (auto) 4.9 Absolute Nucleated RBC 0.0 Nucleated RBC % 0.0 Sodium 133 L Potassium 3.3 L Chloride 107 Carbon Dioxide 17 L Anion Gap 9 BUN 7 D Creatinine 0.60 L Estim Creat Clear Calc Not Reportable Estimated GFR > 60 Glucose 139 H Calcium 8.4 Total Bilirubin 0.6 AST 36 ALT 36 H Alkaline Phosphatase 113 Total Protein 6.0 L Albumin 3.1 L RPR Pending Blood Type AB Positive Antibody Screen Negative Discharge Plan Discharge Attending physician on discharge: Wendy Miles Discharging Clinician: Nicole Pérez Anticipated Discharge Date/Time: 08/19/23 09:40 Patient Disposition: Home, Self-Care Activity: may shower and pelvic rest Diet: as tolerated Discharge Instructions: Continue taking your vitamin and any other
[2023-08-17] MEDS: WITCH HAZEL 40 PADS 1 PAD TOPICAL (15:27)
[2023-08-17] MEDS: BENZOCAINE 20% AER SPR (*SP) 56 GM CAN 1 SPRAY TOPICAL (15:28)
[2023-08-17] MEDS: ACETAMINOPHEN 325 MG TABLET 650 MG PO ×2 (15:55→21:45)
[2023-08-17 16:55] LABS: Rapid Plasma Reagin Non-Reactive (NonReactive)
[2023-08-17] MEDS: IBUPROFEN 600 MG TABLET PO (18:11)
[2023-08-18 02:52] VITALS: BP 120/68; PULSE 77
[2023-08-18 02:53] VITALS: TEMP 37
[2023-08-18] MEDS: IBUPROFEN 600 MG TABLET PO ×3 (02:53→18:49)
[2023-08-18 07:01] VITALS: BP 138/83; PULSE 80
[2023-08-18 07:11] LABS: Hematocrit 33.1 % (37.0-47.0); Hemoglobin 10.6 g/dL (12.0-15.0)
--- NOTE | 2023-08-18 09:59 | PM.OBPNVD ---
OB - PN: Subj Subjective Date/time seen: 08/18/23 09:59 Interval history: No preeclampsia symptoms Patient comments: no complaints baby status: NICU (weaning CPAP ) OB - PN: Obj Data Labs 08/18/23 06:59 08/17/23 05:24 Labs: Laboratory Results - last 24 hr 08/17/23 08/18/23 05:23 06:59 Hgb 10.6 L Hct 33.1 L RPR Non-reactive OB - PN A/P Assessment and Plan (1) Preeclampsia: Code(s): O14.90 - Unspecified pre-eclampsia, unspecified trimester Status: Acute Assessment and Plan: BP normal range no symptoms Plan day: 1 Plan: routine care and other (plan pass to see infant) Time Spent With Patient Time: Total time spent is greater than 50% in coordination of care (as documented) at patient's floor/unit and/or counseling patient: Exam : Bimanual exam- vagina & uterus: other (Uterus firm, nt @U)
[2023-08-18] MEDS: ACETAMINOPHEN 325 MG TABLET 650 MG PO ×2 (10:52→18:49)
[2023-08-18] MEDS: MULTIVIT/MIN/PREN/FOL AC/IRON TABLET 1 TAB PO (10:52)
[2023-08-18 10:54] VITALS: BP 136/78; PULSE 86; PULSE 91; TEMP 36.6; O2SAT 97
--- NOTE | 2023-08-18 11:15 | PC.NURSE ---
1115--Pt ambulated to waiting car for 4-hour pass to visit with infant.
--- NOTE | 2023-08-18 15:21 | OBPPTRN ---
Patient transferred to post room #279 via ambulatory. Support person present. Oriented to unit, room, information board, rooming in, admission packet and security measures. Patient verbalizes understanding.
[2023-08-18 16:04] VITALS: BP 133/77; PULSE 76; RESP 20; TEMP 36.4; O2SAT 99
[2023-08-18] MEDS: FLUoxetine HCL 20 MG CAPSULE 40 MG PO (18:48)
[2023-08-18 20:00] VITALS: BP 135/79; PULSE 78; RESP 18; O2SAT 99
[2023-08-19] VITALS: BP 127/73
[2023-08-19 04:00] VITALS: BP 132/86
[2023-08-19 08:07] VITALS: BP 136/80; PULSE 98; RESP 16; TEMP 36.7; O2SAT 98
--- NOTE | 2023-08-19 09:28 | P.PNOB_ITS ---
OB - PN: Subj Subjective Date/time seen: 08/19/23 09:10 Interval history: Doing well. Urinating without difficulty. Denies passing any large clots. Denies dizziness with ambulating. Tolerating po food and fluids. Feeling somewhat down d/t in NICU. States he is doing well-off of CPAP, just having blood sugar issues and still on IV fluids. Patient comments: no complaints and pain well controlled baby status: NICU feeding status: pumping and storing (has not pumped regularly- did pump at NICU) OB - PN: Obj Data Labs 08/18/23 06:59 08/17/23 05:24 OB - PN A/P Assessment and Plan (1) At risk for ineffective : Code(s): Z91.89 - Other specified personal risk factors, not elsewhere classified Status: Acute Assessment and Plan: Infant in NICU. Discussed pumping, hand expression and frequency of stimulating breasts. (2) (normal spontaneous vaginal delivery): Code(s): O80 - Encounter for full-term uncomplicated delivery Status: Acute (3) Preeclampsia: Code(s): O14.90 - Unspecified pre-eclampsia, unspecified trimester Status: Acute (4) Anxiety and depression: Code(s): F41.9 - Anxiety disorder, unspecified; F32.A - Depression, unspecified Status: Acute Plan day: 2 Plan: discharge home Time Spent With Patient Time: Total time spent is greater than 50% in coordination of care (as documented) at patient's floor/unit and/or counseling patient: Review of Systems Review of Systems: All systems reviewed & are unremarkable except as noted in HPI and below Exam Narrative: Alert and oriented. Mood is pleasant and cooperative. Perineum with minimal edema. Fundus firm and below umbilicus. Const: General: cooperative, healthy appearing, no acute distress and alert Orientation/consciousness: patient oriented x3 Limitations: no limitations Resp: Effort & Inspection: normal respiratory effort and able to speak in complete sentences Auscultation: clear to auscultation bilaterally Cardio: Rate: regular rate GI: Inspection: normal to inspection Auscultation: normal bowel sounds : General: Yes bladder normal to palpation External Female Exam: other (lochia WNL) Bimanual exam- vagina & uterus: bladder normal to palpation Other: Fundus firm and below U Skin: General skin exam: normal color and no rashes or lesions noted Neuro: General: patient oriented x3 and moves all extremities Cognition (Neuro): normal cognition Extrem: General: normal to inspection and no calf tenderness Psych: Appearance: grossly normal Mental Status: mental status grossly normal Affect: normal affect Thought process: Normal thought process prese nt
[2023-08-19] MEDS: MULTIVIT/MIN/PREN/FOL AC/IRON TABLET 1 TAB PO (10:38)
[2023-08-19] MEDS: ACETAMINOPHEN 325 MG TABLET 650 MG PO (10:39)
[2023-08-19] MEDS: IBUPROFEN 600 MG TABLET PO (10:40)
== END 2023-08-19 10:50 | disposition home or self-care (01) | DRG 807 ==
LOC: ANHLDR 13:23 → ANHOBPP 22:48 → ANHOB2 08-18 11:54
PROVIDERS: Advanced Practice Midwife; Admitting Provider Obstetrics & Gynecology Gynecology; Visit Provider Obstetrics & Gynecology Gynecology
DX: O14.04 Mild to moderate pre-eclampsia, complicating childbirth (principal); Z37.0 Single live birth; O70.0 First degree perineal laceration during delivery; Z3A.37 37 weeks gestation of pregnancy
CPT/HCPCS: 36415; 80053; 85014; 85018; 85025; 86592; 86850; 86900; 86901; A9270; J2590; J2795; J3010; J7120

== ENCOUNTER 2023-08-24 11:00 | Outpatient (RCR) | payer OTHER, SELFPAY ==
--- NOTE | 2023-08-27 08:33 | PC.NURSE ---
In- 1100 08/24/23 Out- 1230 08/24/23 Reason for visit: feeding &difficulty at Breast History: mother delivered infant Eladio Weldon at 37 weeks on 08[birth year]17/[birth year]23. Infant was placed in level II and subsequently transferred to [facility]. Mother shared her infant latched in the NICU, however; since getting home infant has not latched. RN WANDER had time to briefly discuss with parents some techniques to work with infant at home on 08/22 at 1245, encouraged to practice latching at the earliest feeding cues, and an appt was set for Thursday 08/24 at 1100. During the Sunday discussion mother was distracted multiple times with her 17 month old toddler. At consultation appt on 08/24 mother shared that she breastfed at 1930 on 08/23, then did not practice again until now at 1138 08/24. Mother has bottle fed breast milk to her infant over night. She has pumped 5 times in the last 24 hours and states she expresses 7 oz with each hand pumping session. She has an electric [employer] pump, however; the battery is and she has yet to find the charging cord. Her spouse and toddler are present at the consult. Mother is often times distracted on 08/22 and today with caring for the toddler. Father of children assist when directed. Mother takes Fluoxetine and is concerned about losing her milk supply. Observations: Mother works well with her . Encouraged understanding of the benefits of skin to skin (demonstrating unwrapping infant and placing upright on her chest), stimulating with massage touch, changing positions to encourage wakefulness, how to watch for early feeding cues, responsive feeding, feeding on demand, milk production, building/maintaining a milk supply, duration of feeding, signs of adequate intake/output and mother's milk supply came to full volume on day 3 or 4. Mother was encouraged to pump consistently to maintain milk at least 8 times a day 1-2 times at night if is being bottle fed EBM and not put to the breast. Reviewed preventing, treatment, watching for signs of engorgement, plugged ducts, and/or mastitis along with when to call MD. Reviewed positioning and ear, shoulder, hip alignment, supporting the breast to facilitate a deep latch, asymmetrical latch (off-center), using the sandwich hold, leading with the chin with a big, open, wide gape and body close to mother. latched optimally to the right, then the left breast in cross cradle position. Education given to the mother of how to visualize the suckling (with good rocking jaw motion), swallows (dropping of the lower jaw) and how to listen for drinking at the breast (the ka sound). was able to maintain latch without pain to mother protecting the nipple with optimal positioning, latching, and demonstrated good swallowing. Reviewed with mother non-nutritive vs nutritive . With pre and post weights determined at this feeding session that transferred 38mls. (1 gram=1ml) Mother states that her breasts feels blankmaker after infant breastfed. My concern is mother shared she pumps 7 oz at each pumping session, however; with optimal latching removed 38mls and mother states she feels empty. is gaining weight appropriately at this time with mother pumping and bottle feeding EBM 1-2 oz about 8-10 times a day. We discussed and reviewed paced bottle feeding, practicing with early feeding cues in a quiet room. Encouraged [id number] time with to calvin, encourage early , and techniques to improved milk supply. We reviewed how many ounces that will take in a 24 hour period and divide it by how many feedings in a 24 hour time frame based on infants weight at this time and the need to continue to grow and gain. Infant requires closer to 1.7 - 2.3 oz at each feeding. Mother can feed frequently on demand and will require less at each feeding and require more if feeding less. Reviewed if infant needs more and isn't going well, then
--- NOTE | 2023-08-27 15:19 | PC.NURSE ---
Late entry for all charting. Charting was entered late for an outpatient appointment on Sunday08/22/23 at [id number].
== END 2023-11-22 23:59 | disposition home or self-care (01) ==
LOC: ANHOBOP 11:00
PROVIDERS: Visit Provider Pediatrics
DX: Z39.1 Encounter for care and examination of lactating mother (principal)
CPT/HCPCS: 99213; G0463

== ENCOUNTER 2024-01-31 12:33 | Outpatient (CLI) | payer OTHER, SELFPAY ==
--- NOTE | ~2024-01-31 | US_ITS ---
US pelvic complete w TV Ordering provider: Nicole Pérez CNM History: . DISPLACEMENT OF INTRAUTERINE CONTRACEPTIVE DEVICE . Comparison: None. Technique: Transabdominal and endovaginal ultrasound of the pelvis (Doppler ultrasound interrogation techniques used as needed for this exam.) FINDINGS: CERVIX: Normal. UTERUS: Measures 6.7x 3.3x 4.8 cm in length which is within normal limits and is anteverted. No myom etrial masses. ENDOMETRIUM: Normal in thickness measuring 1.7 mm. IUD is seen in the uterine cavity. No endometrial masses, cysts or fluid. CUL DE SAC: No free fluid. RIGHT OVARY: Normal in size measuring 4.3x 1.4x 2.2 cm. Normal echotexture. Doppler vascular flow pre sent. LEFT OVARY: Normal in size measuring 3.6x 1.8x 2.9 cm. Normal echotexture. Doppler vascular flow pres ent. Multiple peripheral follicles. ADNEXA: Normal. No mass. IMPRESSION: normal pelvic ultrasound. Reviewed, dictated and finalized at location A. IMPRESSION: normal pelvic ultrasound.
== END 2024-01-31 12:34 | disposition home or self-care (01) ==
PROVIDERS: Visit Provider Advanced Practice Midwife
DX: T83.32XA Displacement of intrauterine contraceptive device, initial encounter (principal)
CPT/HCPCS: 76830; 76856

== ENCOUNTER 2024-10-21 11:01 | Outpatient (CLI) | payer OTHER, SELFPAY ==
--- NOTE | ~2024-10-21 | US_ITS ---
Pelvic ultrasound. Clinical History: Right lower quadrant pain, mass COMPARISON: 124 Technique: Realtime transabdominal and transvaginal scanning of the pelvis was performed. Color flow Doppler and Doppler spectral analysis were performed. Findings: The uterus is anteverted. The endometrial stripe has a thickness of 6 mm. IUD in satisfact ory position. No focal mass is identified. The right ovary measures 6.3 x 4.7 x 5.7 cm. Simple right ovarian cyst measures 5.0 cm in diameter. The left ovary measures 4.3 x 2.1 x 3.0 cm. No significant left ovarian or adnexal mass is seen. There is no evidence of free fluid in the cul de sac. Impression: 5.0 cm simple right ovarian cyst. IUD in place. Reviewed, dictated and finalized at location . Impression: 5.0 cm simple right ovarian cyst. IUD in place.
== END 2024-10-21 11:02 | disposition home or self-care (01) ==
LOC: MICIMG 11:02
PROVIDERS: PCP Obstetrics & Gynecology Gynecology; Visit Provider Obstetrics & Gynecology Gynecology
DX: N83.291 Other ovarian cyst, right side (principal); Z97.5 Presence of (intrauterine) contraceptive device
CPT/HCPCS: 76830; 76856